=== PATIENT | female | born 1955 | race Caucasian/White ===

== ENCOUNTER → 2020-09-18 14:11 | Outpatient (CLI) | payer OTHER, SELFPAY ==
[2020-09-18 15:17] LABS: EXAGEN MAILED SPECIMEN
[2020-09-18 17:51] LABS: Partial Thromboplast Time 25.2 Seconds (24.1-36.2); Prothrombin Time (Protime)PT. 12.3 SECONDS (11.7-14.9)
[2020-09-18 17:55] LABS: Color, Urine Yellow (Yellow); Glucose, Dipstick Normal (Normal); Ketone-Dipstick Negative (Negative); Leukocyte Esterase-Dipstick 25 /ul (Negative); Nitrite-Dipstick Positive (Negative); Occult Blood-Urine 50 /ul (Negative); Protein-Dipstick Negative (Negative); Urine Bilirubin Dipstick Negative (Negative); Urine Clarity Sl. Cloudy (Clear); Urine Urobilinogen Normal (Normal)
[2020-09-18 17:58] LABS: Absolute Lymphocyte Count 2.88 X10^3/uL (0.83-4.51); Absolute Neutrophil Count 3.4 X10^3/uL (2.0-7.7); Basophil# 0.05 X10^3/uL; Basophil% 0.7 % (0-1); Eosinophil# 0.19 X10^3/uL; Eosinophils% 2.7 % (0-5); Hematocrit 40.7 % (37-47); Hemoglobin 13.1 g/dL (12.0-15.0); Lymphocyte # 2.88 X10^3/ul (0.83-4.51); Lymphocyte % 41.6 % (19-41); Mean Corp Hgb Conc 32.2 g/dL (32-36); Mean Corpuscular Hgb 31.6 pg (27.0-32.0); Mean Corpuscular Volume 98.1 fL (81-99); Mean Platelet Vol. 10.2 fl (6.2-12.0); Monocyte# 0.37 X10^3/uL; Monocyte% 5.3 % (0-10); NRBC Flagged by Analyzer 0 % (0-5); Neutrophil # 3.42 X10^3/uL (2.7-7.7); Neutrophil % 49.4 % (47-70); POSITIVE MORPHOLOGY YES; Platelet Count 258 K/mm3 (150-450); RBC Distribution Width CV 13.2 % (11.6-14.6); RBC Distribution Width SD 46.8 fl (35.1-43.9); Red Blood Count 4.15 M/mm3 (4.2-5.4); White Blood Count 6.9 K/mm3 (4.4-11.0)
[2020-09-18 18:05] LABS: Protein, Urine (Random) 19.4 mg/dL (<11.9); Protein:Creat Ratio 160 mg/g CRE (0-200)
[2020-09-18 18:18] LABS: ALB/GLOB Ratio 1.1 RATIO (0.9-2.4); AST(SGOT) 22 U/L (15-37); Alanine Aminotransfer ALT/SGPT 26 U/L (13-56); Alkaline Phosphatase 89 U/L (45-117); Anion Gap 7 (5-15); BUN 8 mg/dL (7-18); BUN/Creat Ratio 9.2 RATIO (10-20); CRP < 2.90 mg/L (0.0-3.0); Calcium,Total 9.1 mg/dL (8.5-10.1); Chloride 105 mmol/L (98-107); Creatinine, Serum 0.87 mg/dL (0.55-1.02); EST Glomerular Filtration Rate 70 mL/min (>60); Est Glom Filt Rate - Afr Amer 85 mL/min (>60); Globulin 3.6 g/dL (2.2-4.2); Glucose 86 mg/dL (74-106); Potassium 3.9 mmol/L (3.5-5.1); Protein, Total 7.6 g/dL (6.4-8.2); Sodium Level 140 mmol/L (136-145)
[2020-09-18 18:27] LABS: Differential Indicated SCAN CRITERIA MET
[2020-09-18 18:38] LABS: Anisocytosis 1+; Platelet Estimate ADEQUATE (ADEQ); Red Cell Morphology N CHROM NORMAL (NORM C&C)
[2020-09-18 18:39] LABS: Erythrocyte Sedimentation Rate 5 mm/hr (0-30); Macrocytosis 1+; Pathologist Review May foll
[2020-09-19 09:48] LABS: Hepatitis B Surface Antibody Reactive; Hepatitis B Surface Antigen Non-Reactive (Nonreactive); Hepatitis C Antibody Non-Reactive (Nonreactive)
[2020-09-21 07:07] LABS: Dilute Prothrombin Time (dPT) 33.9 sec (0.0-55.0); Dilute Russell Viper Venom 35.5 sec (0.0-47.0); Hexagonal Phase Phospholipid 0 sec (0-11); PTT-LA 31.4 sec (0.0-51.9); Thrombin Time 18.7 sec (0.0-23.0); dPT Confirm Ratio 1.12 Ratio (0.00-1.40)
[2020-09-22 08:33] LABS: Interpretation Comment: (.)
== END ==
PROVIDERS: PCP Family Medicine; Referring Provider Internal Medicine Rheumatology; Visit Provider Internal Medicine Rheumatology
DX: M06.4 Inflammatory polyarthropathy (principal); R76.8 Other specified abnormal immunological findings in serum; M21.41 Flat foot [pes planus] (acquired), right foot; I10 Essential (primary) hypertension; E78.5 Hyperlipidemia, unspecified; F41.9 Anxiety disorder, unspecified
CPT/HCPCS: 36415; 80053; 81002; 82570; 84156; 85025; 85598; 85610; 85652; 85670; 85730; 86140; 86706; 86803; 87340

== ENCOUNTER 2023-07-08 00:10 | Inpatient (IN) | payer MEDICARE, SELFPAY ==
[2023-07-07 23:30] VITALS: BP 157/98; PULSE 68; RESP 18; TEMP 36.3; O2SAT 96
[2023-07-08] VITALS (9 sets, daily range): BP systolic 142–184; BP diastolic 75–105; PULSE 70–92; RESP 18; TEMP 35.7–36.7; O2SAT 94–99; BMI 24.1
--- NOTE | 2023-07-08 00:05 | PCM.HP.STD ---
HPI - General General Date of Admission: 07/08/23 Date of Service: 07/08/23 Chief Complaint: Nausea and vomiting with elevated troponin. HPI Narrative EBONY BAEZ, is a 67 F with a past medical history of essential hypertension, hyperlipidemia, obesity; with BMI of 34 this admission, history of tobacco abuse, depression and osteoarthritis who was transferred from [facility] ER to [facility] for direct admission after she was noted to have elevated troponin. Ms. Baez reports her symptoms began approximately 2 days prior to admission with the abrupt onset of nausea followed by several episodes of bilious emesis. The patient then went to [facility] ER and had a unremarkable CT scan of the abdomen and pelvis with IV volume resuscitation given and patient sent home on July 06, 2023. She then returned home to watch the eclipse but then became ill again with several episodes of nausea and bilious emesis causing her to bring her back to the ER at [facility]. She also admitted to weakness, fatigue and diaphoresis with patient soaking through her bed clothes. On this occasion patient was noted to have another negative CT scan of the abdomen and pelvis but she was noted to have a significant elevated troponin of 1,652 pg/mL (normal high 51.4 pg/mL) consistent with suspected non-ST elevation IA along with urinalysis suggestive of acute cystitis; with microscopic hematuria complicated by laboratory evidence of hypokalemia of 2.9 mmol/L noted at 11:42 AM with associated leukocytosis of 14.3. Further review of her lab studies shows negative assays for COVID-19 and influenza A/B. The ER staff at [place] then contacted the warehouse material handler at this institution to arrange possible transfer after a brief phone conversation with Dr. Barajas. I also had an extensive conversation with the patient's at the bedside who helped to augment the history. She was then admitted to the PCU for ongoing care for stay that is expected to be greater than 48 hours. [facility] Home Medications atorvastatin 40 mg tablet 40 mg PO QHS 07/07/23 [History Last Taken 07/06/23] dicyclomine 20 mg tablet 20 mg PO Q8H PRN PRN abdominal pain 07/07/23 [History Last Taken 07/06/23] metoprolol succinate 25 mg tablet,extended release 24 hr 25 mg PO DAILY 07/07/23 [History Last Taken 07/06/23] ondansetron 4 mg disintegrating tablet 4 mg PO Q8H PRN PRN nausea/vomiting 07/07/23 [History Last Taken 07/07/23 09:00] sertraline 100 mg tablet 200 mg PO DAILY 07/07/23 [History Last Taken 07/06/23] Allergy/AdvReac Type Severity Reaction Status Date / Time Penicillins Allergy Unknown PT UNSURE Verified 07/08/23 00:49 OF REACTION Social History Smoking Status: Current every day smoker tobacco type: cigarettes ROS ROS Narrative Patient was excessively fatigued with limited ability to answer questions so a full review of systems was not possible. Review of Systems ROS Unobtainable: due to mental condition Physical Exam Const alert, no apparent distress and average body habitus General Appearance: cooperative Orientation / Consciousness: lethargic HEENT normocephalic, head/scalp atraumatic, hearing grossly normal bilaterally and moist oral mucous membranes Eyes PERRL and EOMs intact bilaterally Neck no lymphadenopathy and supple Resp normal respiratory effort, no retractions, no use of accessory muscles and clear to auscultation bilaterally Cardio regular rate and regular rhythm GI normal to inspection, nondistended, normoactive bowel sounds, soft to palpation, non-tender and non-distended Extremity normal to inspection and full ROM Skin Skin Narrative: Patient has no evidence of rash or abscess at this time. Neuro CN's II-XII intact bilaterally, moves all extremities and no focal motor deficits Sensorium / Orientation: awake, alert, oriented to person and oriented to place Speech: speech normal Psych affect normal Results Medical Records Data Attestation: I reviewed the patient's medical records Lab / Micro Data Attestation: I reviewed the patient's lab results. Assessment & Plan Assessment/Plan (1) Non-ST elevation myocardial infarction (NSTEMI), initial care episode: (2) Elevated troponin: (3) Acute cystitis with hematuria: (4) Intractable nausea and vomiting: (5) Hypokalemia: PLAN: Plan 1. Suspected non-ST elevation IA with elevated troponin of 1,652 pg/mL present on admission to previous hospital and 1,628 pg/mL this a.m.- Admit to PCU. Continue IV heparin per cardiac protocol plus give metoprolol and add aspirin, Plavix and statin. Give as needed nitroglycerin for breakthrough chest pain. Serialize troponin. Check echocardiogram to evaluate left ventricular ejection fraction. Finally, we will consult quarter inspector on-call to see the patient on rounds in the a.m. for further recommendations regarding left heart cath this admission without appreciated in advance. 2. Acute cystitis; with microscopic hematuria and listed allergy to penicillin (but with patient unsure of reaction) with leukocytosis of 14.3 present on admission complicating #1 - Start empiric IV Rocephin and await culture and sensitivity data. Give Tylenol as needed for pain or fever. 3. Hypokalemia of 2.9 mmol/L present on admission to previous hospital compounding #1 & #2 - Recheck BMP this admission and replete if still deficient. 4. Recent admission followed by readmission to [place] ER for intractable nausea and vomiting with bilious emesis on July 06, 2023 and July 07, [address] scans on both occasions - Noted. Give IV Zofran as needed. 5. Essential hypertension - Resume home regimen as previous plus give IV hydralazine as needed for systolic blood pressure greater than 160 mmHg. 5. Hyperlipidemia - Continue statin and check lipid profile in light of #1. 6. Obesity; with BMI of 34 this admission - Weight loss will be recommended. Check TSH. 7. DVT prophylaxis - Patient already on IV heparin for #1 which will be continued. Total time: Approximately 55 minutes. Charges/Coding Visit Charges Inpatient E&M: 36923 Init Hosp L2
--- NOTE | 2023-07-08 00:14 | EKG12_ITS ---
Test Reason : NSTEMI ADMIT Blood Pressure : / mmHG Vent. Rate : 065 BPM Atrial Rate : 065 BPM P-R Int : 116 ms QRS Dur : 088 ms QT Int : 440 ms P-R-T Axes : 044 -05 030 degrees QTc Int : 457 ms Normal sinus rhythm Nonspecific ST abnormality Abnormal ECG When compared with ECG of 08-JUL-2023 00:19, MANUAL COMPARISON REQUIRED, DATA IS UNCONFIRMED Confirmed by Tad Hong ([id number]), news assignment editor THEODORA PIKE ([id number]) on 07/08/2023 11:36:05 AM Referred By: Quiroga Confirmed By:Tad Hong
--- NOTE | 2023-07-08 00:55 | ECHOD_ITS ---
Reason For Study: S/P HI Procedure This was a 2D Doppler, Color Flow transthoracic echocardiogram. The study was technically difficult. PT was very uncofortable, constant movement. Exam performed portable in patient room. Left Ventricle Normal LV size. The estimated ejection fraction is 55 %. Stage 1 diastolic dysfunction. Segmental dysfunction with preserved ejection fraction (see wall motion). Basal inferoseptal: Hypokinetic. Posterior-Basal: Hypokinetic. Mid-Posterior: Hypokinetic. Infero-Basal: Severely Hypokinetic. There are regional wall motion abnormalities as specified. The rest of the wall segments are normal. Right Ventricle Normal RV size. Normal systolic function. Atria Normal left atrium. Normal right atrium. Mitral Valve Normal mitral valve. Mild (1+) mitral valve insufficiency. Tricuspid Valve Normal tricuspid valve. Mild tricuspid valve insufficiency. Pulmonary artery systolic pressure is 20 mmHg. Aortic Valve Normal aortic valve. Trisinus/trileaflet aortic valve. Pulmonic Valve Normal pulmonic valve. Great Vessels Normal aortic root. The pulmonary artery is normal size. Inferior vena cava collapse with respiration. Pericardium/Pleural No pericardial effusion. MMode/2D Measurements & Calculations LVIDd: 5.6 cm IVSd: 0.97 cm Ao root diam: 2.9 cm LVIDs: 3.9 cm LVPWd: 0.96 cm RVDd: 2.5 cm FS: 31.3 % LAV(MOD-bp): 55.1 ml LVAd ap4: 23.6 cm2 LVAd ap2: 17.6 cm2 LAV(MOD-bp) Indexed: 31.2 ml/m2 LVLd ap4: 6.6 cm LVLd ap2: 6.8 cm LAV(MOD-sp2): 51.2 ml EDV(MOD-sp4): 73.5 ml EDV(MOD-sp2): 41.4 ml LAV(MOD-sp4): 53.9 ml EDV(sp4-el): 71.7 ml EDV(sp2-el): 38.7 ml LVAs ap4: 13.9 cm2 LVAs ap2: 10.2 cm2 LVLs ap4: 5.3 cm LVLs ap2: 5.5 cm ESV(MOD-sp4): 33.4 ml ESV(MOD-sp2): 18.2 ml ESV(sp4-el): 30.6 ml ESV(sp2-el): 15.9 ml EF(MOD-sp4): 54.6 % EF(MOD-sp2): 56.0 % EF(sp4-el): 57.4 % SV(MOD-sp4): 40.2 ml SV(MOD-sp2): 23.2 ml SV(sp4-el): 41.1 ml LA dimension(2D): 3.5 cm LA A4 area: 18.5 cm2 RA A4 area: 11.9 cm2 TAPSE: 2.2 cm Time Measurements MV dec time: 0.31 sec Doppler Measurements & Calculations MV E max christophe: 61.4 cm/sec Lat Peak E' Christophe: 5.4 cm/sec Med Peak E' Christophe: 4.8 cm/sec MV A max christophe: 81.1 cm/sec E/E' lat: 11.3 E/E' med: 12.8 MV E/A: 0.76 MV V2 max: 89.6 cm/sec MV P1/2t max christophe: 59.7 cm/sec Ao V2 max: 130.3 cm/sec MV max P.2 mmHg MV P1/2t: 92.7 msec Ao max P.8 mmHg MV V2 mean: 46.7 cm/sec MV dec slope: 188.6 cm/sec2 Ao V2 mean: 90.2 cm/sec MV mean P.99 mmHg Ao mean P.6 mmHg MV V2 VTI: 26.2 cm MVA(P1/2t): 2.4 cm2 Ao V2 VTI: 26.6 cm AV (velocity ratio): 0.79 LV V1 max: 117.5 cm/sec PA V2 max: 100.3 cm/sec TR max christophe: 202.8 cm/sec LV V1 max P.5 mmHg PA V2 mean: 63.3 cm/sec TR max P.5 mmHg LV V1 mean P.7 mmHg LV V1 mean: 77.0 cm/sec LV V1 VTI: 21.1 cm ECHO/Echo Complete Interpretation Summary Normal LV size. The estimated ejection fraction is 55 %. Stage 1 diastolic dysfunction. Segmental dysfunction with preserved ejection fraction (see wall motion). Ordering Physician: Brian Beach Referring Physician: Zack Reeves Performed By: Cassy Mayo, SATYA, RVT
[2023-07-08 02:14] LABS: Partial Thromboplast Time 41.7 Seconds (24.1-36.2)
[2023-07-08 02:31] LABS: D-Dimer Quantitative (DVT/PE) 1.39 FEU/ug/m (0.27-0.49)
--- NOTE | 2023-07-08 02:35 | VDLE_ITS ---
Reason For Study: Elevated D-Dimer RIGHT LEFT GSV is normal. GSV is normal. CFV is compressible, spontaneous, phasic, CFV is compressible, spontaneous, phasic, competent and demonstrates normal competent, and demonstrates normal augmentation. augmentation. FV is compressible, spontaneous, phasic, FV is compressible, spontaneous, phasic, competent and demonstrates normal competent and demonstrates normal augmentation. augmentation. POP V is compressible, spontaneous, phasic, POP V is compressible, spontaneous, phasic, competent and demonstrates normal competent and demonstrates normal augmentation. augmentation. T/P Trunk is compressible. T/P Trunk is compressible. PTV is compressible. PTV is compressible. RT PerV is compressible. LT PerV is compressible. Procedure This is a venous duplex using B-mode, color flow and spectral Doppler. Exam performed portable in patient room. A preliminary report was called and/or faxed to Aidee ELLER. VL/Venous Duplex US - Deep Extrem Interpretation Summary Deep veins of the lower extremities are bilaterally patent and compressible seg mentally. There is no evidence of deep vein thrombosis on either side. Valvular competence appears in tact within the proximal deep venous systems bilaterally. The great saphenous veins appear bila terally patent and compressible segmentally. Ordering Physician: Brian Beach Referring Physician: Zack Reeves Performed By: Kassie Burr, SATYA, RVT
[2023-07-08 02:41] LABS: Troponin-I HS 1628 pg/mL (3.0-54.0)
[2023-07-08] MEDS: HEPARIN/D5w 25,000 UNITS 25,000 UNITS/250 ML IV.SOLN. 8 UNITS CONT INF (02:41)
[2023-07-08 04:19] LABS: Hematocrit 40.8 % (37-47); Hemoglobin 14.6 g/dL (12.0-15.0); Mean Corp Hgb Conc 35.8 g/dL (32-36); Mean Corpuscular Hgb 32.5 pg (27.0-32.0); Mean Corpuscular Volume 90.9 fL (81-99); Mean Platelet Vol. 9.1 fl (6.2-12.0); Platelet Count 270 K/mm3 (150-450); RBC Distribution Width SD 42.4 fl (35.1-43.9); Red Blood Count 4.49 M/mm3 (4.2-5.4); White Blood Count 14.1 K/mm3 (4.4-11.0)
[2023-07-08 04:48] LABS: Troponin-I HS 1604 pg/mL (3.0-54.0)
[2023-07-08] MEDS: Metoprolol(XL)Succ 25 MG Tablet PO (06:21)
[2023-07-08] MEDS: Potassium Chloride Oral Tablet 20 MEQ 60 MEQ PO (06:21)
[2023-07-08] MEDS: Aspirin E.C. 81 MG Tablet PO (06:21)
[2023-07-08] MEDS: Clopidogrel Bisulfate 75 MG Tablet PO (06:21)
--- NOTE | 2023-07-08 07:15 | PCM.PN.HOSP ---
Reason for Visit Reason for Visit: Diagnoses Hypokalemia (07/08/23) Non-ST elevation (NSTEMI) myocardial infarction (07/08/23) Acute cystitis with hematuria (07/08/23) Nausea with vomiting, unspecified (07/08/23) Other specified abnormal findings of blood chemistry (07/08/23) Objective Data Objective Data Vital Signs: Vital Signs Temp Pulse Resp BP Pulse Ox O2 Del Method 96.9 F L 70 18 142/75 H 94 Room Air 07/08/23 03:00 07/08/23 06:21 07/08/23 03:00 07/08/23 06:21 07/08/23 03:00 07/08/23 03:00 Oxygen Delivery Method Room Air Weight: 149 lb 7.574 oz Body Mass Index (BMI) 24.1 Intake & Output: Intake and Output for Last 24 Hours 07/06/23 07/07/23 07/08/23 23:59 23:59 23:59 Intake Total 0.4 / 0.4 Output Total 0 / 0 Balance 0.4 / 0.4 Lab / Micro Data 07/08/23 04:10 07/08/23 08:19 Labs: Laboratory Results - last 24 hr 07/08/23 01:53: APTT 41.7 H, D-Dimer Quant (PE/DVT) 1.39 H*, Troponin I High Sens 1628 H* 07/08/23 04:10: WBC 14.1 H, RBC 4.49, Hgb 14.6, Hct 40.8, MCV 90.9, MCH 32.5 H, MCHC 35.8, RDW Std Deviation 42.4, RDW Coeff of James 13.0, Plt Count 270, MPV 9.1, Troponin I High Sens 1604 H* Physical Exam Narrative Patient was directly admitted from outside hospital. She has intractable nausea and vomiting about 7-8 times yesterday. Mainly bilious type for 3 days. No abdominal pain. No acute change in bowel movement. High troponin. No chest pain. No fever. Denies prior history of CAD or other chronic cardiac conditions. Physical exam: General: Alert, Oriented x3, Cooperative HEENT: Atraumatic, PERRLA, EOMI, Normocephalic Oral: Oral mucosa dry. No Gingival or Mucosal Lesions/ Ulcerations Neck: Supple, No JVD, Negative Carotid Bruits Chest wall/Lungs: Air entry diminished in bilateral lung bases. No crepitation/rhonchi Cardiovascular: Regular rate, Regular Rhythm, Normal S1, Normal S2, No M/G/R Abdomen: Dry heaving. Bilious vomiting. Bowel Sounds Present, Soft, Non Tender, Non-Distended : No dysuria. No renal angle tenderness. No suprapubic tenderness. Extremities: No edema, Capillary Refill Less than 3 Seconds Skin: No rashes, No breakdown Musculoskeletal: No Tenderness to Palpation of Joints or Extremities Neurological: Cranial nerves II-XII grossly intact, DTR 2+/4. No acute focal neurological deficit. Psych/Mental Status: Normal Affect, Appropriate. Assessment & Plan Assessment/Plan (1) Non-ST elevation myocardial infarction (NSTEMI), initial care episode: (2) Acute cystitis with hematuria: (3) Hypokalemia: PLAN: Plan This 67-year-old female being admitted from outside ED [facility] for elevated troponin. Her symptoms started abruptly with onset of nausea followed by several bilious vomiting. Patient had CT abdomen/pelvis which was unremarkable as per H&P and then sent home after IV fluid resuscitation. She came back with again nausea and vomiting for weakness fatigue and diaphoresis. Repeat CT abdomen was done and was told to accepting hospitalist that it is normal but in fact abnormal, elevated troponin 1652, abnormal UA with microscopic hematuria, hypokalemia K2.9 and associated leukocytosis. Patient with negative COVID-[address] 1. Suspected non-ST elevation [place] with elevated troponin of 1,652 pg/mL present on admission to previous hospital and 1,628 pg/mL and then 1604.- Admit to PCU. Continue IV heparin per cardiac protocol plus give metoprolol and add aspirin, Plavix and statin. Give as needed nitroglycerin for breakthrough chest pain. 2D echo ordered. Cardiology is consulted. CTA chest shows no PE no acute pulmonary parenchymal abnormality. 2. Intractable nausea and bilious vomiting: Although was verbally told by ED physician to admitting hospitalist that [address] abdomen was normal but in fact it was not normal.CT abdomen with contrast on 07/07/2023, compared to CT 07/05 reported persistent thickening of the ascending and proximal portion of transverse colon. Distal transverse and descending colon demonstrated mild wall thickening decreased compared to prior. No bowel obstruction or dilatation. Sigmoid diverticulosis. Rest no acute abnormality found. No aortic aneurysm but atherosclerotic calcification of aorta. I believe that patient might have viral enterocolitis which might be reason for thickening of ascending and proximal colon. Patient does not have abdominal pain or change in bowel movement or diarrhea therefore more specimen for testing. Will treat symptomatically with IV Zofran and metoclopramide. 3. Mild abnormal UA: Patient does not have burning micturition increased frequency or urgency or symptoms consistent with UTI therefore clinically no UTI. IV ceftriaxone discontinued. UA from outside ER shows WBC 6-10, RBC 10-15 cells LE 25 and nitrite negative.UA done today was similar LE 500, 0 RBC, WBC 5200 cells. Urine culture is ordered. 3. Hypokalemia of 2.9 mmol/L present on admission:-Repeat potassium is also low at 3.1. IV KCl replacement ordered. Serum magnesium and phosphorus normal. 4. Recent admission followed by readmission to [place] ER for intractable nausea and vomiting with bilious emesis on July 06, 2023 and July 07, [address] scans on both occasions - Noted. Give IV Zofran as needed. 5. Essential hypertension - Resume home regimen as previous plus give IV hydralazine as needed for systolic blood pressure greater than 160 mmHg. 5. Hyperlipidemia - Continue statin and check lipid profile in light of #1. 6. Obesity; with BMI of 34 this admission - Weight loss will be recommended. Check TSH. 7. DVT prophylaxis - Patient already on IV heparin for non-ST Charges/Coding Visit Charges Inpatient E&M: 45738 Subs Hosp L2
--- NOTE | 2023-07-08 07:45 | CON.PCM.CA_ITS ---
Assessment & Plan Assessment/Plan (1) Non-ST elevation myocardial infarction (NSTEMI), initial care episode: PLAN: The patient has risk factors for cardiovascular disease. Her EKG shows some nonspecific ST segment depression in leads V3 through V5. The nausea and vomiting is potentially an anginal equivalent her troponins high-sensitivity is 1600. We will check a 2D echocardiogram to evaluate her LV function. She needs to have her potassium documented to be fully replaced into the normal range prior to any type of invasive catheterization. I am also concerned that there may be an alternative explanation for this nausea and vomiting we should consider the possibility of a posterior fossa neurologic event. The patient denied any ataxia but does have this unexplained intractable nausea and vomiting. I did discuss the plan in detail with the patient and her who was in the room. (2) Intractable nausea and vomiting: PLAN: Uncertain etiology. It does not appear to be primarily GI in etiology given the negative CT scans. This could be an anginal equivalent. It also could be neurologic manifestation of the posterior fossa event as well. I will defer to the primary service to sort through the noncardiovascular potential etiologies. (3) Hypokalemia: PLAN: Potassium should be replaced to between 3.5 and 5 prior to catheterization. PLAN: Plan 1. Obtain echocardiogram to evaluate the LV function and regional wall motion. 2. Replace potassium to within normal limits. 3. Further evaluation of noncardiac issues per the primary service. HPI Consult Data Date of Consult: 07/08/23 HPI Narrative HPI Narrative: EBONY WREN, is a 67 F who presents with a 3-day history of episodic nausea and bilious vomiting. She was evaluated twice on July 05 and at [facility]. She was treated with Zofran volume replacement and had a negative CT of her abdomen and pelvis on both visits. On the second visit troponins were checked and were found to be 1600. The patient's EKG showed subtle ST segment depressions but no ST segment elevations in the anterior lateral leads. The patient was transferred to [facility]. Since transfer the patient has continued to have some nausea but her vomiting has resolved. She denies any chest discomfort denies any shortness of breath. The patient does have a history of hypertension and hyperlipidemia and she is a long-term smoker about 1/2 pack/day for many years. The patient denies being diabetic. Her labs showed a potassium of 2.9 at primary range. The patient was started on aspirin and clopidogrel and was placed on IV heparin. She is also on low-dose metoprolol and her atorvastatin was continued at 40 mg daily. [facility] Home Medications atorvastatin 40 mg tablet 40 mg PO QHS 07/07/23 [History Last Taken 07/06/23] dicyclomine 20 mg tablet 20 mg PO Q8H PRN PRN abdominal pain 07/07/23 [History Last Taken 07/06/23] metoprolol succinate 25 mg tablet,extended release 24 hr 25 mg PO DAILY 07/07/23 [History Last Taken 07/06/23] ondansetron 4 mg disintegrating tablet 4 mg PO Q8H PRN PRN nausea/vomiting 07/07/23 [History Last Taken 07/07/23 09:00] sertraline 100 mg tablet 200 mg PO DAILY 07/07/23 [History Last Taken 07/06/23] Allergy/AdvReac Type Severity Reaction Status Date / Time Penicillins Allergy Unknown PT UNSURE Verified 07/08/23 00:49 OF REACTION Social History Smoking Status: Current every day smoker tobacco type: cigarettes ROS Constitutional Constitutional: Reports as per HPI Eyes Eyes: Reports systems reviewed and no addt'l complaints, except as documented ENT HEENT: Reports systems reviewed and no addt'l complaints, except as documented Cardiovascular Cardiovascular: Reports as per HPI Respiratory/Chest Respiratory/Chest: Reports as per HPI Gastrointestinal Gastrointestinal: Reports as per HPI Genitourinary Genitourinary: Reports systems reviewed and no addt'l complaints, except as documented Musculoskeletal Musculoskeletal: Reports systems reviewed and no addt'l complaints, except as documented Integumentary Integumentary: Reports systems reviewed and no addt'l complaints, except as documented Neurologic Neurologic: Reports as per HPI Psychiatric Psychiatric: Reports systems reviewed and no addt'l complaints, except as documented Endocrine Endocrinology: Reports systems reviewed and no addt'l complaints, except as documented Hematologic/Lymphatic Hematologic/Lymphatic: Reports systems reviewed and no addt'l complaints, except as documented Allergic/Immunologic Allergic/Immunologic: Reports systems reviewed and no addt'l complaints, except as documented Physical Exam Const alert Constitutional Narrative: Patient was able to answer questions she was somewhat sleepy but really appears just to feel bad from her persistent mild nausea. HEENT normocephalic Eyes EOMs intact bilaterally Neck no JVD Carotids: Negative for bruit Chest inspection of chest normal Resp normal respiratory effort and clear to auscultation bilaterally Cardio regular rate, regular rhythm, S1 normal heart sound, S2 normal heart sound, no murmurs, no rub and no gallops Peripheral Pulses: radial pulses present bilateral 2+ and posterior tibial pulses present bilateral 2+ GI soft to palpation Extremity no pedal edema Skin no rashes or lesions noted Neuro Neuro Narrative: Patient is awake and alert answers questions appropriately and oriented x 3 Psych mental status grossly normal Risk Stratification Risk Stratification Applicable: Yes Age >/= 65: Yes >/= 3 CAD Risk Factors (HTN, HLD, DM, family hx of CAD, or current smoker): Yes Aspirin Use in the Past 7 Days: No Severe Angina (>/= episodes in 24 hours): No EKG ST Changes >/= 0.5mm: Yes Positive Cardiac Marker: Yes BRENDAN Risk Stratification Score: 4 BRENDAN % Risk: 20% Risk Charges/Coding Visit Charges Inpatient E&M: 15648 Init Hosp L3 Objective Data Vital Signs: Vital Signs Temp Pulse Resp BP Pulse Ox O2 Del Method 96.9 F L 70 18 142/75 H 94 Room Air 07/08/23 03:00 07/08/23 06:21 07/08/23 03:00 07/08/23 06:21 07/08/23 03:00 07/08/23 03:00 Oxygen Delivery Method Room Air Weight: 149 lb 7.574 oz Body Mass Index (BMI) 24.1 Intake & Output: Intake and Output for Last 24 Hours 07/06/23 07/07/23 07/08/23 23:59 23:59 23:59 Intake Total 0.4 / 0.4 Output Total 0 / 0 Balance 0.4 / 0.4 Lab / Micro Data Attestation: I reviewed the patient's lab results. 07/08/23 04:10 Labs: Laboratory Results - last 24 hr 07/08/23 01:53: APTT 41.7 H, D-Dimer Quant (PE/DVT) 1.39 H*, Troponin I High Sens 1628 H* 07/08/23 04:10: WBC 14.1 H, RBC 4.49, Hgb 14.6, Hct 40.8, MCV 90.9, MCH 32.5 H, MCHC 35.8, RDW Std Deviation 42.4, RDW Coeff of James 13.0, Plt Count 270, MPV 9.1, Troponin I High Sens 1604 H* Rhythm Strip Rhythm Strip: Sinus Rhythm Rate: 73 Ectopy: - (There was 1 run of SVT noted on the telemetry.) Cardiology Labs/Tests 07/08/23 01:53: APTT 41.7 H, D-Dimer Quant (PE/DVT) 1.39 H* 07/08/23 04:10: WBC 14.1 H, RBC 4.49, Hgb 14.6, Hct 40.8, MCV 90.9, MCH 32.5 H, MCHC 35.8, Plt Count 270, MPV 9.1 Rhythm: EKG: ECHO: Stress Test: Cardiac Cath: PCI: CT Surgery: Holter monitor: EPS: PPM: CXR: Chest CT Scan:
[2023-07-08] MEDS: 0.9% Saline Lock 10 ML Syringe IV ×4 (08:20→17:54)
[2023-07-08] MEDS: Metoclopramide 10 MG/2 ML Vial 5 MG IV ×3 (08:21→20:53)
[2023-07-08 09:08] LABS: AST(SGOT) 34 U/L (15-37); Alanine Aminotransfer ALT/SGPT 22 U/L (13-56); Albumin, Serum 3.8 g/dL (3.2-5.0); Alkaline Phosphatase 87 U/L (45-117); Anion Gap 9 (5-15); BUN 9 mg/dL (7-18); Calcium,Total 9.1 mg/dL (8.5-10.1); Chloride 105 mmol/L (98-107); Cholesterol 244 mg/dL (200); Creatinine, Serum 0.75 mg/dL (0.55-1.02); EST Glomerular Filtration Rate 83 mL/min (>60); Est Glom Filt Rate - Afr Amer 100 mL/min (>60); Estimated Creatinine Clearance 65.63 ml/min; Globulin 3.9 g/dL (2.2-4.2); Glucose 140 mg/dL (74-106); High Density Lipoprotein 71 mg/dL; Potassium 3.1 mmol/L (3.5-5.1); Protein, Total 7.7 g/dL (6.4-8.2); Sodium Level 138 mmol/L (136-145); Thyroid Stim Hormone (TSH) 4.26 uIU/mL (0.358-3.74); Triglycerides 171 mg/dL; Troponin-I HS 1268 pg/mL (3.0-54.0); Very Low Density Lipoprotein 34 mg/dL (5-40)
[2023-07-08] MEDS: Ceftriaxone 1 GM/50 ML BAG IV (09:37)
[2023-07-08 11:13] LABS: Bacteria 0 SEEN /hpf (None Seen); Mucous, Urine 0 SEEN /hpf (<or=2+); Red Blood Cells-Urine 0 SEEN /hpf (0-5)
[2023-07-08 11:15] LABS: Color, Urine Yellow (Yellow); Glucose, Dipstick Normal (Normal); Ketone-Dipstick 50 mg/dl (Negative); Leukocyte Esterase-Dipstick 500 /ul (Negative); Nitrite-Dipstick Negative (Negative); Occult Blood-Urine 250 /ul (Negative); Protein-Dipstick 100 mg/dl (Negative); Urine Bilirubin Dipstick Negative (Negative); Urine Clarity Clear (Clear); Urine Urobilinogen Normal (Normal)
[2023-07-08 11:20] LABS: Squamous Epithelial Cells - UA 0-5 SEEN /hpf (5-10); White Blood Cells 50-100 SEEN /hpf (0-5)
[2023-07-08 11:21] LABS: Magnesium 1.7 mg/dL (1.6-2.6); Phosphorus 2.7 mg/dL (2.5-4.9)
[2023-07-08] MEDS: Ondansetron ODT 4 MG Tablet PO (11:29)
[2023-07-08] MEDS: Potassium Chloride 10mEq/100mL 10 MEQ/100 ML IV.SOLN. 100 MEQ IV BOLUS ×4 (11:29→14:46)
[2023-07-08] MEDS: Magnesium Chloride 64 MG Delay Rel.Tablet 128 MG PO ×2 (13:39→20:53)
--- NOTE | 2023-07-08 14:45 | CASEMGMT ---
RN CM Face to Face with patient for initial transition planning/care coordination assessment. RN CM introduced self and role at [facility]. Patient lying in bed, alert and oriented, at bedside. Patient willing to participate in assessment and is able to answer all questions appropriately. Care providers, pharmacy, and demographics verified. PCP: Leandro Specialists: none Preferred Pharmacy: [facility] Insurance: [facility], [facility] Prescription Benefit: yes Living Will/HPOA: yes, Ken Baez LNOK: Living Arrangements: Patient lives with in a 2 story home. Patient is independent and able ambulate stairs Transportation: self, DME/HHC: Patient denies DME in the home. No previous HHC or SNF. Patient wishes to discharge home, denies need for home health at this time. Patient states he has no further needs or concerns at this time. CM to follow for discharge planning needs that may arise. Disposition Plan: Patient to discharge home with family support and follow-up plans in place. Debora DAVIES, RN, CM
[2023-07-08] MEDS: Lisinopril 10 MG Tablet PO (15:15)
[2023-07-08] MEDS: Ondansetron 4 MG/2 ML Vial IV (17:54)
[2023-07-08] MEDS: Atorvastatin Calcium 40 MG Tablet PO (20:53)
[2023-07-08] MEDS: Labetalol (Prefilled) 20 MG/4 ML 10 MG IV (20:53)
[2023-07-08] MEDS: Scopolamine 1mg/72hr Patch 1 PATCH TD (23:27)
[2023-07-08] MEDS: proCHLORPERazine 10 MG/2 ML Vial IV (23:31)
[2023-07-09] VITALS (11 sets, daily range): BP systolic 141–179; BP diastolic 68–105; PULSE 73–94; RESP 16–18; TEMP 36.3–37.3; O2SAT 95–99
--- NOTE | 2023-07-09 05:55 | EKG12_ITS ---
Test Reason : PRE OP Blood Pressure : / mmHG Vent. Rate : 093 BPM Atrial Rate : 093 BPM P-R Int : 136 ms QRS Dur : 084 ms QT Int : 380 ms P-R-T Axes : 078 -10 013 degrees QTc Int : 472 ms Normal sinus rhythm Nonspecific ST abnormality Abnormal ECG When compared with ECG of 08-JUL-2023 00:22, No significant change was found Confirmed by Tad Hong ([id number]), editor greeting card IONA KEENE ([id number]) on 07/09/2023 8:28:21 AM Referred By: Confirmed By:Tad Hong
[2023-07-09] MEDS: Metoprolol(XL)Succ 25 MG Tablet PO (06:10)
[2023-07-09] MEDS: Lisinopril 10 MG Tablet PO (06:10)
[2023-07-09] MEDS: Aspirin E.C. 81 MG Tablet PO (06:11)
[2023-07-09] MEDS: Metoclopramide 10 MG/2 ML Vial 5 MG IV ×2 (06:11→17:41)
[2023-07-09] MEDS: Clopidogrel Bisulfate 75 MG Tablet PO (06:11)
--- NOTE | 2023-07-09 07:01 | MRI_ITS ---
STUDY: MRI BRAIN WITH AND WITHOUT CONTRAST REASON FOR EXAM: Female, 67 years old. intractable n/v,suspect posterior fossa - TECHNIQUE: Standardized multiplanar fat and water weighted pulse sequences were obtained. IV 13ml clariscan was administered for the contrast portion of the examination. COMPARISON: None. FINDINGS: There is mild cerebral atrophy with widening of the extra-axial spaces and ventricular dilatation. There are a limited number of small white matter hyperintensities, distributed throughout the deep white matter tracts of the cerebral hemispheres, consistent with mild chronic white matter ischemic changes. There is no evidence for recent intracranial ischemia or other cause of cytotoxic edema on diffusion weighted imaging (DWI). Normal T2* images of the brain without demonstrated susceptibility artifact. There is no demonstrated hemosiderin stain. There are no demyelinating plagues of the supratentorial brain, brainstem or cerebellum. There are no findings suspicious for multiple sclerosis (MS). Normal bilateral basal ganglia. Normal thalami. There is no extra-axial fluid accumulation. Normal flow voids within the major intracranial circulation suggesting patency by spin echo criteria. Normal venous enhancement. There is no enhancing intra-axial or extra-axial abnormality. No enhancing lesions are present. There is no demonstrated abnormal meningeal thickening or enhancement. Normal sella turcica, pituitary gland, infundibular stalk, optic chiasm and hypothalamus. Normal tectal plate and pineal gland. Normal midbrain, kelsey and medulla. Normal cerebellum. Normal basal cisterns. Normal bilateral temporal bones. Normal bilateral internal auditory canals. No demonstrated orbital abnormality, within the constraints of a routine brain study. Normal visualized paranasal sinuses. Normal calvarium and skull base. Normal visualized soft tissue structures. Normal visualized upper cervical spine. There is severe opacification of the left mastoid air cells consistent with mastoiditis. There also appears to be some mild opacification in the petrous mastoid air cells on the right as well. MRI/Brain W/WO Contrast IMPRESSION: 1. Involutional and mild chronic ischemic changes of the brain, as described above. 2. No acute infarct or intracranial hemorrhage 3. Severe left mastoiditis, this can be better assessed with CT of the temporal bones Electronically Signed: Patrick Davey MD at 10:39 EDT ,
--- NOTE | 2023-07-09 07:17 | PCM.PN.CARD ---
Subjective Subjective The patient continues to complain of nausea which is debilitating. She has been resting in the bed. A review of the CT scans did show some changes in the transverse colon that might be consistent with a viral infection. However the patient has had no diarrhea and has not had any abdominal pains. She continues to be nauseated despite Zofran and now scopolamine patch. The scopolamine patch seems to improve the nausea more than anything. It is not appear to change with change of position. And she denies any focal neurologic signs other than some short-term memory issues. The patient's cardiovascular workup is consistent with presumed coronary artery disease she does have atherosclerotic disease in her descending aorta on her CAT scan she has a wall motion abnormality on her echo and her enzymes are positive. She is tentatively scheduled for cath today. I discussed this in detail with the patient and her I am extremely concerned about taking her to the [facility] placing a stent and then delegating her to a minimum 6 months of dual antiplatelet therapy. I feel prior to proceeding to cath we need to definitively rule out any intracranial issues that could be causing this intractable nausea. Objective Data Vital Signs: Vital Signs Temp Pulse Resp BP Pulse Ox O2 Del Method 98.5 F 94 18 179/105 H 98 Room Air 07/09/23 03:00 07/09/23 06:37 07/09/23 03:00 07/09/23 06:37 07/09/23 03:00 07/09/23 03:00 Oxygen Delivery Method Room Air Weight: 149 lb 7.574 oz Body Mass Index (BMI) 24.1 Intake & Output: Intake and Output for Last 24 Hours 07/07/23 07/08/23 07/09/23 23:59 23:59 23:59 Intake Total 618.55 / 858.55 240 / 240 Output Total 0 / 0 Balance 618.55 / 858.55 240 / 240 Lab / Micro Data 07/08/23 04:10 07/08/23 08:19 Labs: Laboratory Results - last 24 hr 07/08/23 08:19: APTT 38.0 H, Sodium 138, Potassium 3.1 L, Chloride 105, Carbon Dioxide 24.0, Anion Gap 9, BUN 9, Creatinine 0.75, Estim Creat Clear Calc 65.63, Est GFR (MDRD) Af Amer 100, Est GFR (MDRD) Non-Af 83, BUN/Creatinine Ratio 12.0, Glucose 140 H, Calcium 9.1, Phosphorus 2.7, Magnesium 1.7, Total Bilirubin 1.00, AST 34, ALT 22, Alkaline Phosphatase 87, Troponin I High Sens 1268 H*, Total Protein 7.7, Albumin 3.8, Globulin 3.9, Albumin/Globulin Ratio 1.0, Triglycerides 171, Cholesterol 244 H, LDL Cholesterol 139 H, VLDL Cholesterol 34, HDL Cholesterol 71, TSH 4.26 H 07/08/23 11:08: Urine Color Yellow, Urine Clarity Clear, Urine pH 6.0, Ur Specific [place] 1.020, Urine Protein 100 H, Urine Glucose (UA) Normal, Urine Ketones 50 H, Urine Occult Blood 250 H, Urine Nitrite Negative, Urine Bilirubin Negative, Urine Urobilinogen Normal, Ur Leukocyte Esterase 500 H, Urine RBC 0 SEEN, Urine WBC 50-100 SEEN, Ur Squamous Epith Cells 0-5 SEEN, Urine Bacteria 0 SEEN, Urine Mucus 0 SEEN Rhythm Strip Rhythm Strip: Sinus Rhythm Rate: 70 Cardiology Labs/Tests 07/08/23 08:19: APTT 38.0 H, Sodium 138, Potassium 3.1 L, Chloride 105, Carbon Dioxide 24.0, Anion Gap 9, BUN 9, Creatinine 0.75, Est GFR (MDRD) Af Amer 100, Est GFR (MDRD) Non-Af 83, BUN/Creatinine Ratio 12.0, Glucose 140 H, Calcium 9.1, Phosphorus 2.7, Magnesium 1.7, Total Bilirubin 1.00, Triglycerides 171, Cholesterol 244 H, LDL Cholesterol 139 H, VLDL Cholesterol 34, HDL Cholesterol 71 07/08/23 11:08: Urine Color Yellow, Urine Clarity Clear, Urine pH 6.0, Ur Specific [place] 1.020, Urine Protein 100 H, Urine Glucose (UA) Normal, Urine Ketones 50 H, Urine Occult Blood 250 H, Urine Nitrite Negative, Urine Bilirubin Negative, Urine Urobilinogen Normal, Ur Leukocyte Esterase 500 H, Urine RBC 0 SEEN, Urine WBC 50-100 SEEN Rhythm: EKG: ECHO: Stress Test: Cardiac Cath: PCI: CT Surgery: Holter monitor: EPS: PPM: CXR: Chest CT Scan: Radiography Diagnostic Testing: Radiology Impression Echocardiogram 07/08/23 00:55 Interpretation Summary Normal LV size. The estimated ejection fraction is 55 %. Stage 1 diastolic dysfunction. Segmental dysfunction with preserved ejection fraction (see wall motion). Ordering Physician: Brian Beach Referring Physician: Zack Reeves Performed By: Cassy Mayo RDCS, RVT Venous Doppler Study 07/08/23 02:35 Interpretation Summary Deep veins of the lower extremities are bilaterally patent and compressible segmentally. There is no evidence of deep vein thrombosis on either side. Valvular competence appears intact within the proximal deep venous systems bilaterally. The great saphenous veins appear bilaterally patent and compressible segmentally. Ordering Physician: Brian Beach Referring Physician: Zack Reeves Performed By: Kassie Burr RDCS, RVT Physical Exam Const alert HEENT normocephalic Eyes EOMs intact bilaterally Neck full ROM Chest inspection of chest normal Resp normal respiratory effort Cardio regular rate and regular rhythm Extremity no pedal edema Skin no rashes or lesions noted Neuro Neuro Narrative: The nausea persist there are no obvious focal deficits. Psych mental status grossly normal Assessment & Plan Assessment/Plan (1) Intractable nausea and vomiting: PLAN: The patient's nausea is persistent despite multiple drug therapy although it is somewhat better this morning by her report with the addition of scopolamine patch. I still remain very concerned that this could be some type of intracranial issue given the duration of this persistent nausea and a lack of other viable explanation for this nausea. There is some question of the second CT scan showing some changes in the transverse colon consistent with a possible viral infection. There is no evidence of pancreatitis. The patient also does have wall motion abnormalities on her echo and positive enzymes as well as atherosclerosis documented in the descending aorta on the CAT scan. It is highly likely she has coronary artery disease but it is unlikely that this persistent nausea is related to it. I have ordered an MRI of the brain. I did call the MRI department and they felt that the dental implants would not be an issue. She has no other contra or pseudo contraindication for MRI. (2) Non-ST elevation myocardial infarction (NSTEMI), initial care episode: PLAN: Given the potential for needing to stent the patient's coronary arteries and this persistent nausea I am concerned that we need to definitively rule out an intracranial issue. We need to make certain that there is no contraindication for long-term dual antiplatelet therapy prior to taking the patient to the [facility]. I reviewed this in detail with the patient and her and they voiced understanding. The patient's hemodynamic status and her cardiovascular status seems to have been stable throughout her hospitalization. PLAN: Plan 1. Obtain MRI prior to cardiac catheterization. 2. Will continue to monitor cardiovascular status until we can better define the etiology of this nausea. Charges/Coding Visit Charges Inpatient E&M: 38742 Subs Hosp L3
[2023-07-09 09:25] LABS: Absolute Lymphocyte Count 2.42 X10^3/uL (0.83-4.51); Absolute Neutrophil Count 9.2 X10^3/uL (2.0-7.7); Basophil# 0.06 X10^3/uL; Basophil% 0.5 % (0-1); Eosinophil# 0.07 X10^3/uL; Eosinophils% 0.5 % (0-5); Hematocrit 44.4 % (37-47); Hemoglobin 15.4 g/dL (12.0-15.0); Lymphocyte # 2.42 X10^3/ul (0.83-4.51); Lymphocyte % 18.9 % (19-41); Mean Corp Hgb Conc 34.7 g/dL (32-36); Mean Corpuscular Hgb 31.6 pg (27.0-32.0); Mean Platelet Vol. 9.3 fl (6.2-12.0); Monocyte# 1.08 X10^3/uL; Monocyte% 8.4 % (0-10); NRBC Flagged by Analyzer 0 % (0-5); Neutrophil # 9.16 X10^3/uL (2.7-7.7); Neutrophil % 71.5 % (47-70); Platelet Count 296 K/mm3 (150-450); RBC Distribution Width CV 13.1 % (11.6-14.6); Red Blood Count 4.88 M/mm3 (4.2-5.4); White Blood Count 12.8 K/mm3 (4.4-11.0)
[2023-07-09 09:58] LABS: Anion Gap 5 (5-15); BUN 16 mg/dL (7-18); BUN/Creat Ratio 21.6 RATIO (10-20); Calcium,Total 9.9 mg/dL (8.5-10.1); Chloride 106 mmol/L (98-107); Creatinine, Serum 0.74 mg/dL (0.55-1.02); EST Glomerular Filtration Rate 83 mL/min (>60); Est Glom Filt Rate - Afr Amer 101 mL/min (>60); Estimated Creatinine Clearance 65.63 ml/min; Glucose 133 mg/dL (74-106); Potassium 3.7 mmol/L (3.5-5.1); Sodium Level 135 mmol/L (136-145)
[2023-07-09] MEDS: 0.9% Saline Lock 10 ML Syringe IV (10:23)
[2023-07-09] MEDS: Ceftriaxone 1 GM/50 ML BAG IV (10:23)
[2023-07-09] MEDS: Magnesium Chloride 64 MG Delay Rel.Tablet 128 MG PO ×2 (10:23→21:59)
[2023-07-09] MEDS: Ondansetron 4 MG/2 ML Vial IV (10:25)
--- NOTE | 2023-07-09 13:58 | CL.D_ITS ---
Patient Name: EBONY WREN Study Date: 07/09/2023 Performing: Faraz Barnhart MD Ht: 66 inches 167.64 cm : 1955 Wt: 149.7 lbs 67.8 kg Age: 67 Gender: female BSA: 1.77 PROCEDURE(S) PERFORMED DC01-(38063)LHC/COR/LV CLINICAL PROFILE AND INDICATIONS Indications: Suspected CAD Heart Failure: None Stress/Imaging Stress/Image Study Performed: No CAD Presentations: Symptom unlikely to be ischemic. CONCLUSIONS Moderate disease noted in the mid left anterior descending artery and moderately severe disease noted in the small first diagonal vessel. RECOMMENDATIONS Medical therapy DESCRIPTION OF PROCEDURE The patient arrived to the procedure lab. The risks and benefits of the procedure as well as a full description of our services here and current unavailability of surgical backup were fully explained to the patient and/or their significant other prior to the catheterization. The Timeout was completed, verifying the correct patient and procedure. The patient's procedural site was prepped and draped in the usual fashion. Local anesthetic was given subcutaneously to right radial region with Lidocaine 2%. Using a modified Seldinger technique, arterial access was obtained via the right radial artery, a 6Fr sheath was inserted. Left Coronary Artery selective angiography was performed in multiple views using a 5 Fr. 4.0 [place] catheter. Right Coronary Artery selective angiography was then performed in multiple views using a 5 Fr. 4.0 [place] catheter. Left Ventriculography was performed in COLBY projection using a 5 Fr. Pigtail catheter.The arterial sheath was pulled and a TR Band was applied for hemostasis 14 ml of air CORONARY ANGIOGRAPHY DOMINANCE: Right Dominant LEFT HEART ASSESSMENT Left Ventricular Ejection Fraction: by LV Gram 55 % Posterior Basal Hypokinesis - Moderate. Inferior Mid Hypokinesis - Moderate Normal Left Ventricular systolic function LEFT MAIN: Angiographically normal LEFT ANTERIOR DESCENDING ARTERY: Mild calcification MID LAD: Moderate luminal irregularities up to 50% DIAGONAL 1: Proximal - 70-80 % Stenosis CIRCUMFLEX ARTERY: Mild luminal irregularities RIGHT CORONARY ARTERY: No significant disease noted COMPLICATIONS No Complications PROCEDURE MEDICATIONS Fentanyl 50 mcg IV Versed 1 mg IV Versed 1 mg IV Oxygen: 2 L/min via nasal cannula Heparin given IA 07/09/2023 11:33:39 Verapamil 2.5mg, Ntg 100mcgs, 3000 units of Heparin given IA 07/09/2023 11:33:39 SUMMARY OF HEMODYNAMIC DATA Time AIR REST ECG 11:18:01 AO 137/85 (109) SA 11:37:54 LV 140/-1, 2 11:42:56 LV 0/0, 0 11:43:16 LV 0/130, 0 11:43:35 LV 148/76, 79 11:44:07 Signed By Faraz Barnhart MD On 07/09/2023 13:57:52 Faraz Barnhart MD
--- NOTE | 2023-07-09 14:06 | PN.HOSP_ITS ---
Reason for Visit Reason for Visit: Diagnoses Hypokalemia (07/08/23) Non-ST elevation (NSTEMI) myocardial infarction (07/08/23) Acute cystitis with hematuria (07/08/23) Nausea with vomiting, unspecified (07/08/23) Other specified abnormal findings of blood chemistry (07/08/23) Objective Data Objective Data Vital Signs: Vital Signs Temp Pulse Resp BP Pulse Ox O2 Del Method 98.0 F 90 16 141/76 H 98 Room Air 07/09/23 13:57 07/09/23 13:57 07/09/23 13:57 07/09/23 13:57 07/09/23 13:57 07/09/23 13:57 Oxygen Delivery Method Room Air Weight: 149 lb 7.574 oz Body Mass Index (BMI) 24.1 Intake & Output: Intake and Output for Last 24 Hours 07/07/23 07/08/23 07/09/23 23:59 23:59 23:59 Intake Total 618.55 / 858.55 290 / 290 Output Total 0 / 0 Balance 618.55 / 858.55 290 / 290 Lab / Micro Data 07/09/23 08:56 07/09/23 08:56 Labs: Laboratory Results - last 24 hr 07/09/23 08:56: WBC 12.8 H, RBC 4.88, Hgb 15.4 H, Hct 44.4, MCV 91.0, MCH 31.6, MCHC 34.7, RDW Std Deviation 44.0 H, RDW Coeff of James 13.1, Plt Count 296, MPV 9.3, Immature Gran % (Auto) 0.200, Neut % (Auto) 71.5 H, Lymph % (Auto) 18.9 L, [place] % (Auto) 8.4, Eos % (Auto) 0.5, Baso % (Auto) 0.5, Absolute Neuts (auto) 9.2 H, Absolute Lymphs (auto) 2.42, Nucleated RBC % 0, Sodium 135 L, Potassium 3.7, Chloride 106, Carbon Dioxide 24.0, Anion Gap 5, BUN 16, Creatinine 0.74, Estim Creat Clear Calc 65.63, Est GFR (MDRD) Af Amer 101, Est GFR (MDRD) Non-Af 83, BUN/Creatinine Ratio 21.6 H, Glucose 133 H, Calcium 9.9 Radiography Diagnostic Testing: Radiology Impression Venous Doppler Study 07/08/23 02:35 Interpretation Summary Deep veins of the lower extremities are bilaterally patent and compressible segmentally. There is no evidence of deep vein thrombosis on either side. Valvular competence appears intact within the proximal deep venous systems bilaterally. The great saphenous veins appear bilaterally patent and compressible segmentally. Ordering Physician: Brian Beach Referring Physician: Zack Reeves Performed By: Kassie Burr, RDCS, RVT Brain MRI 07/09/23 07:01 IMPRESSION: 1. Involutional and mild chronic ischemic changes of the brain, as described above. 2. No acute infarct or intracranial hemorrhage 3. Severe left mastoiditis, this can be better assessed with CT of the temporal bones Electronically Signed: Patrick Davey MD at 10:39 EDT Reading Location ID and State: [facility] / [place] , Service support , Rhythm Strip Rhythm Strip: Sinus Rhythm Rate: 70 Ectopy: - (There was 1 run of SVT noted on the telemetry.) Physical Exam Narrative Last 24 hours patient marked her 1-2 vomiting but mainly dry heaving and nausea. Storm Chaser ordered MRI brain to rule out any stroke. MRI brain came negative for acute stroke but shows left severe mastoid air cells opacification and mild right mastoid but patient does not have ear pain/impaired hearing or tinnitus, dizziness or vertigo. 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 No chest pain. Physical exam: General: Alert, Oriented x3, Cooperative HEENT: Atraumatic, PERRLA, EOMI, Normocephalic. No mastoid tenderness. Oral: Oral mucosa dry. No Gingival or Mucosal Lesions/ Ulcerations Neck: Supple, No JVD, Negative Carotid Bruits Chest wall/Lungs: Air entry diminished in bilateral lung bases. No crepitation/rhonchi Cardiovascular: Regular rate, Regular Rhythm, Normal S1, Normal S2, No M/G/R Abdomen: Dry heaving. Bilious vomiting. Bowel Sounds Present, Soft, Non Tender, Non-Distended : No dysuria. No renal angle tenderness. No suprapubic tenderness. Extremities: No edema, Capillary Refill Less than 3 Seconds Skin: No rashes, No breakdown Musculoskeletal: No Tenderness to Palpation of Joints or Extremities Neurological: Cranial nerves II-XII grossly intact, DTR 2+/4. No acute focal neurological deficit. Psych/Mental Status: Normal Affect, Appropriate. Assessment & Plan Assessment/Plan (1) Non-ST elevation myocardial infarction (NSTEMI), initial care episode: (2) Acute cystitis with hematuria: (3) Hypokalemia: PLAN: Plan This 67-year-old female being admitted from outside ED [facility] for elevated troponin. Her symptoms started abruptly with onset of nausea followed by several bilious vomiting. Patient had CT abdomen/pelvis which was unremarkable as per H&P and then sent home after IV fluid resuscitation. She came back with again nausea and vomiting for weakness fatigue and diaphoresis. Repeat CT abdomen was done and was told to accepting hospitalist that it is normal but in fact abnormal, elevated troponin 1652, abnormal UA with microscopic hematuria, hypokalemia K2.9 and associated leukocytosis. Patient with negative COVID-[address] 1. Suspected non-ST elevation AL with elevated troponin of 1,652 pg/mL present on admission to previous hospital and 1,628 pg/mL and then 1604.- Admit to PCU. Continue IV heparin per cardiac protocol plus give metoprolol and add aspirin, Plavix and statin. Give as needed nitroglycerin for breakthrough chest pain. 2D echo ordered. Cardiology is consulted. CTA chest shows no PE no acute pulmonary parenchymal abnormality. 07/08: Patient had cardiac cath, right dominant EF 55%. Moderate inferior and posterior basal hypokinesis. Moderate disease in mid LAD and moderately severe small proximal D1 70 to 80%. Medical management recommended. 2. Intractable nausea and bilious vomiting: Although was verbally told by ED physician to admitting hospitalist that [address] abdomen was normal but in fact it was not normal.CT abdomen with contrast on 07/07/2023, compared to CT 07/05 reported persistent thickening of the ascending and proximal portion of transve rse colon. Distal transverse and descending colon demonstrated mild wall thickening decreased compared to prior. No bowel obstruction or dilatation. Sigmoid diverticulosis. Rest no acute abnormality found. No aortic aneurysm but atherosclerotic calcification of aorta. I believe that patient might have viral enterocolitis which might be reason for thickening of ascending and proximal colon. Patient does not have abdominal pain or change in bowel movement or diarrhea therefore more specimen for testing. Will treat symptomatically with IV Zofran and metoclopramide. 07/08: Nausea and vomiting has gotten better. MRI brain does not show acute stroke but severe left mastoid air cell opacification and mild right mastoid air cell opacification. Patient does not have ear pain, impaired hearing, dizziness, or tinnitus therefore no related ENT symptoms therefore most likely chronic mastoiditis. Patient on IV ceftriaxone empirically. Total 7 days of antibiotic recommended. Advised follow-up with ENT Dr. Javier Brown in the office. 3. Mild abnormal UA: Patient does not have burning micturition increased frequency or urgency or symptoms consistent with UTI therefore clinically no UTI. IV ceftriaxone discontinued. UA from outside ER shows WBC 6-10, RBC 10-15 cells LE 25 and nitrite negative.UA done today was similar LE 500, 0 RBC, WBC 5200 cells. Urine culture is ordered. 07/08: Urine culture pending. 3. Hypokalemia of 2.9 mmol/L present on admission:-Repeat potassium is also low at 3.1. IV KCl replacement ordered. Serum magnesium and phosphorus normal. 4. Recent admission followed by readmission to [facility] for intractable nausea and vomiting with bilious emesis on July 06, 2023 and July 07, [address] scans on both occasions - Noted. Give IV Zofran as needed. 5. Essential hypertension - Resume home regimen as previous plus give IV hydralazine as needed for systolic blood pressure greater than 160 mmHg. 5. Hyperlipidemia - Continue statin and check lipid profile in light of #1. 6. Obesity; with BMI of 34 this admission - Weight loss will be recommended. Check TSH. 7. DVT prophylaxis - Patient already on IV heparin for non-ST Charges/Coding Visit Charges Inpatient E&M: 53746 Subs Hosp L2
[2023-07-09] MEDS: proMETHazine 25 MG/ML Syringe 12.5 MG IM (18:43)
[2023-07-09] MEDS: Atorvastatin Calcium 40 MG Tablet PO (22:00)
[2023-07-10 03:42] VITALS: BP 155/102; PULSE 93; RESP 16; TEMP 36.8; O2SAT 99
[2023-07-10] MEDS: proMETHazine 25 MG/ML Syringe 12.5 MG IM (04:19)
[2023-07-10] MEDS: 0.9% Saline Lock 10 ML Syringe IV (04:20)
[2023-07-10 07:56] LABS: Absolute Neutrophil Count 7.4 X10^3/uL (2.0-7.7); Basophil# 0.07 X10^3/uL; Basophil% 0.6 % (0-1); Eosinophil# 0.18 X10^3/uL; Eosinophils% 1.5 % (0-5); Hematocrit 44.7 % (37-47); Hemoglobin 15.5 g/dL (12.0-15.0); Lymphocyte % 26.2 % (19-41); Mean Corp Hgb Conc 34.7 g/dL (32-36); Mean Corpuscular Hgb 31.6 pg (27.0-32.0); Mean Platelet Vol. 9.3 fl (6.2-12.0); Monocyte# 1.09 X10^3/uL; Monocyte% 9.2 % (0-10); NRBC Flagged by Analyzer 0 % (0-5); Neutrophil # 7.38 X10^3/uL (2.7-7.7); Neutrophil % 62.3 % (47-70); Platelet Count 298 K/mm3 (150-450); RBC Distribution Width CV 12.9 % (11.6-14.6); RBC Distribution Width SD 42.9 fl (35.1-43.9); Red Blood Count 4.91 M/mm3 (4.2-5.4); White Blood Count 11.8 K/mm3 (4.4-11.0)
--- NOTE | 2023-07-10 07:56 | PCM.PN.CARD ---
Subjective Subjective Patient chart reviewed. Patient has CAD that will be treated medically. Objective Data Vital Signs: Vital Signs Temp Pulse Resp BP Pulse Ox O2 Del Method 98.3 F 93 16 155/102 H 99 Room Air 07/10/23 03:42 07/10/23 03:42 07/10/23 03:42 07/10/23 03:42 07/10/23 03:42 07/10/23 03:42 Oxygen Delivery Method Room Air Weight: 149 lb 7.574 oz Body Mass Index (BMI) 24.1 Intake & Output: Intake and Output for Last 24 Hours 07/08/23 07/09/23 07/10/23 23:59 23:59 23:59 Intake Total 618.55 / 858.55 810 / 810 440 / 440 Output Total 0 / 0 Balance 618.55 / 858.55 810 / 810 440 / 440 Lab / Micro Data Attestation: I reviewed the patient's lab results. 07/09/23 08:56 07/09/23 08:56 Labs: Laboratory Results - last 24 hr 07/09/23 08:56: WBC 12.8 H, RBC 4.88, Hgb 15.4 H, Hct 44.4, MCV 91.0, MCH 31.6, MCHC 34.7, RDW Std Deviation 44.0 H, RDW Coeff of James 13.1, Plt Count 296, MPV 9.3, Immature Gran % (Auto) 0.200, Neut % (Auto) 71.5 H, Lymph % (Auto) 18.9 L, [place] % (Auto) 8.4, Eos % (Auto) 0.5, Baso % (Auto) 0.5, Absolute Neuts (auto) 9.2 H, Absolute Lymphs (auto) 2.42, Nucleated RBC % 0, Sodium 135 L, Potassium 3.7, Chloride 106, Carbon Dioxide 24.0, Anion Gap 5, BUN 16, Creatinine 0.74, Estim Creat Clear Calc 65.63, Est GFR (MDRD) Af Amer 101, Est GFR (MDRD) Non-Af 83, BUN/Creatinine Ratio 21.6 H, Glucose 133 H, Calcium 9.9 Rhythm Strip Rhythm Strip: Sinus Rhythm Rate: 87 Ectopy: - (There was 1 run of SVT noted on the telemetry.) Cardiology Labs/Tests 07/09/23 08:56: WBC 12.8 H, RBC 4.88, Hgb 15.4 H, Hct 44.4, MCV 91.0, MCH 31.6, MCHC 34.7, Plt Count 296, MPV 9.3, Immature Gran % (Auto) 0.200, Neut % (Auto) 71.5 H, Lymph % (Auto) 18.9 L, [place] % (Auto) 8.4, Eos % (Auto) 0.5, Baso % (Auto) 0.5, Absolute Neuts (auto) 9.2 H, Nucleated RBC % 0, Sodium 135 L, Potassium 3.7, Chloride 106, Carbon Dioxide 24.0, Anion Gap 5, BUN 16, Creatinine 0.74, Est GFR (MDRD) Af Amer 101, Est GFR (MDRD) Non-Af 83, BUN/Creatinine Ratio 21.6 H, Glucose 133 H, Calcium 9.9 Rhythm: EKG: ECHO: Stress Test: Cardiac Cath: PCI: CT Surgery: Holter monitor: EPS: PPM: CXR: Chest CT Scan: Radiography Diagnostic Testing: Radiology Impression Brain MRI 07/09/23 07:01 IMPRESSION: 1. Involutional and mild chronic ischemic changes of the brain, as described above. 2. No acute infarct or intracranial hemorrhage 3. Severe left mastoiditis, this can be better assessed with CT of the temporal bones Electronically Signed: Patrick Davey MD at 10:39 EDT Reading Location ID and State: [address] [place] [address] , Service support , Assessment & Plan Assessment/Plan (1) Non-ST elevation myocardial infarction (NSTEMI), initial care episode: PLAN: Patient has severe disease in a small diagonal branch. There is moderate disease in the proximal LAD no more than 50% stenosis. The right coronary is large dominant and free of any significant disease in the circumflex has no significant disease. There is a wall motion abnormality in the mid inferior wall. The patient is currently on beta-teresa, JANES inhibitor, atorvastatin, and an aspirin a day. The patient denies any anginal symptoms. The diagnosis of her non-STEMI was made off the echocardiogram wall motion abnormality and her elevated troponins. The patient's wall motion abnormality does not coincide with the most significant coronary disease. PLAN: Plan 1. Continue current secondary risk factor modification medical therapy. 2. Follow-up in the [facility] office in 3 to 4 weeks. 3. Further evaluation and treatment of the nausea and her blood pressure will be deferred to the primary service. Charges/Coding Visit Charges Inpatient E&M: 57777 Subs Hosp L1
--- NOTE | 2023-07-10 08:07 | PCM.DC ---
Discharge Instructions Diet Discharge Diet: Low fat / Low cholesterol and 2000 mg Sodium Diet Activity Discharge Activity: Return to Normal Activity Weight Bearing Status: Weight bearing as tolerated Dressing / Incision Call your doctor if you observe: Fever of 101 or Higher, Coldness, Increased Pain, Numbness or Tingling, Change in Color, Inability to urinate, Inability to have a bowel movement, Using more than 1 pad per hour, Shortness of breath, Dizziness, Fainting spells, Swelling in the ankles, Chest pain, Prolonged hiccupping, Increased palpitations (irregular heartbeat) and Calf discomfort Follow Up Care When: IN 2 WEEKS Test Results: Test results from this visit will be discussed in further detail at your follow-up appointment, if applicable. Discharge Plan Admission Admit Date/Time: 07/08/23 00:10 Primary Reason for Your Visit: NSTEMI Attending Provider: Choco Travis Primary Care Provider: Zack Reeves Consulting Providers: Ashley Mccormick; Kye Waldron; Jing Mauricio; Dipesh Willard; Kei Antoine; Faraz Barnhart; Arthur Fletcher; Rivas Underwood; Leonardo Marquez; Tad Hong; Jorge Lyons; Edwige Manzano; James Weber; Miky Hayes; Onel Olivarez; Mickey Medrano; Zack Burr [employer]; Ashley Qureshi NP; Irma Fitzpatrick PA; Brian Beach Discharge Orders/Prescriptions Prescriptions: New aspirin 81 mg Tablet,Delayed Release (Dr/Ec) 81 mg PO BREAKFAST 30 Days Qty: 30 4RF lisinopril 10 mg Tablet 10 mg PO DAILY 30 Days Qty: 30 2RF atorvastatin 80 mg tablet 80 mg PO QHS 30 Days Qty: 30 3RF ondansetron HCl 4 mg tablet 4 mg PO Q6H PRN (Reason: nausea and vomiting) 30 Days Qty: 30 0RF metoclopramide HCl [Reglan] 5 mg tablet 5 mg PO Q6H PRN (Reason: nausea and vomiting) Qty: 14 0RF cefdinir 300 mg capsule 300 mg PO BID 3 Days Qty: 6 0RF Continued dicyclomine 20 mg tablet 20 mg PO Q8H PRN PRN (Reason: abdominal pain) ondansetron 4 mg tablet,disintegrating 4 mg PO Q8H PRN PRN (Reason: nausea/vomiting) Changed metoprolol succinate 25 mg tablet extended release 24 hr 50 mg PO DAILY 30 Days Qty: 60 0RF Rx Instructions: Hold for heart less than 50 or systolic blood pressure less than 100 mmHg. Held sertraline 100 mg tablet 200 mg PO DAILY Hold Instructions: Do not take sertraline While taking metoclopramide/Reglan Discontinued atorvastatin 40 mg tablet 40 mg PO QHS Referrals / Follow Up: Zack Reeves MD [Primary Care Provider] - Javier Brown MD [Med Staff - Active Staff] - Within 2 Weeks (left matoiditis, chronic?) Tad Hong MD [Med Staff - Active Staff] - Within 1 Month Domenic Macias DO [Med Staff - Active Staff] - Within 1 Month (For proximal colon thickening, Need colonoscopy.) Disposition Disposition (needs filled in before D/C Order can be placed): Home, Self Care
--- NOTE | 2023-07-10 08:21 | PCM.DC.SUM ---
Providers Date of Admission: 07/08/23 Primary Care Physician: Dr. Zack Reeves MD Consultations 07/08/23 00:55 Consult: Cardiology Routine Consulting Provider: Armando Navas Reason for Consult: Non-STEMI EMERGENT Consult: No MD Notified: Yes Date Notified: 07/08/23 Time Notified: 06:42 Method of Notification: Text Method of Consult:: In-Person Reason For Visit: NON-ST ELEVATION ME Diagnosis Discharge Diagnosis (1) Non-ST elevation myocardial infarction (NSTEMI), initial care episode: Status: Acute Code(s): I21.4 - Non-ST elevation (NSTEMI) myocardial infarction Plan This 67-year-old female being admitted from outside ED [facility] for elevated troponin. Her symptoms started abruptly with onset of nausea followed by several bilious vomiting. Patient had CT abdomen/pelvis which was unremarkable as per H&P and then sent home after IV fluid resuscitation. She came back with again nausea and vomiting for weakness fatigue and diaphoresis. Repeat CT abdomen was done and was told to accepting hospitalist that it is normal but in fact abnormal, elevated troponin 1652, abnormal UA with microscopic hematuria, hypokalemia K2.9 and associated leukocytosis. Patient with negative COVID-[address] 1. Suspected non-ST elevation ME with elevated troponin of 1,652 pg/mL present on admission to previous hospital and 1,628 pg/mL and then 1604.- Admit to PCU. Continue IV heparin per cardiac protocol plus give metoprolol and add aspirin, Plavix and statin. Give as needed nitroglycerin for breakthrough chest pain. 2D echo ordered. Cardiology is consulted. CTA chest shows no PE no acute pulmonary parenchymal abnormality. 07/08: Patient had cardiac cath, right dominant EF 55%. Moderate inferior and posterior basal hypokinesis. Moderate disease in mid LAD and moderately severe small proximal D1 70 to 80%. Medical management recommended. 07/09: Discharged on aspirin, beta-kirstin JOSÉ MIGUEL inhibitor and atorvastatin. Follow-up in cardiology office with Dr. Hong in about 1 month. 2. Intractable nausea and bilious vomiting: Although was verbally told by ED physician to admitting hospitalist that [address] abdomen was normal but in fact it was not normal.CT abdomen with contrast on 07/07/2023, compared to CT 07/05 reported persistent thickening of the ascending and proximal portion of transverse colon. Distal transverse and descending colon demonstrated mild wall thickening decreased compared to prior. No bowel obstruction or dilatation. Sigmoid diverticulosis. Rest no acute abnormality found. No aortic aneurysm but atherosclerotic calcification of aorta. I believe that patient might have viral enterocolitis which might be reason for thickening of ascending and proximal colon. Patient does not have abdominal pain or change in bowel movement or diarrhea therefore more specimen for testing. Will treat symptomatically with IV Zofran and metoclopramide. 07/08: Nausea and vomiting has gotten better. MRI brain does not show acute stroke but severe left mastoid air cell opacification and mild right mastoid air cell opacification. Patient does not have ear pain, impaired hearing, dizziness, or tinnitus therefore no related ENT symptoms therefore most likely chronic mastoiditis. Patient on IV ceftriaxone empirically. Total 7 days of antibiotic recommended. Advised follow-up with ENT Dr. Javier Brown in the office. 07/09: Nausea and vomiting has gotten better. Although olanzapine was ordered as needed but she did not require it. Patient discharged on empiric Zofran and metoclopramide. Advised to follow-up with the carrier driver Dr. Macias in about [address] Javier Brown. Discharge plan discussed in detail with the patient and her near the bedside. 3. Mild abnormal UA: Patient does not have burning micturition increased frequency or urgency or symptoms consistent with UTI therefore clinically no UTI. IV ceftriaxone discontinued. UA from outside ER shows WBC 6-10, RBC 10-15 cells LE 25 and nitrite negative.UA done today was similar LE 500, 0 RBC, WBC 5200 cells. Urine culture is ordered. 07/09: Urine culture shows no growth. UTI ruled out. 3. Hypokalemia of 2.9 mmol/L present on admission:-Repeat potassium is also low at 3.1. IV KCl replacement ordered. Serum magnesium and phosphorus normal. 07/09 on repeat potassium 3.8. Hypokalemia resolved. 4. Recent admission followed by readmission to [facility] for intractable nausea and vomiting with bilious emesis on July 06, 2023 and July 07, [address] scans on both occasions - Noted. Give IV Zofran as needed. 5. Essential hypertension - Resume home regimen as previous plus give IV hydralazine as needed for systolic blood pressure greater than 160 mmHg. 5. Hyperlipidemia - Continue statin and check lipid profile in light of #1. 6. Obesity; with BMI of 34 this admission - Weight loss will be recommended. Check TSH. 7. DVT prophylaxis - Patient already on IV heparin for non-ST Discharge medication reconciliation done. Discharge follow-up instructions completed. Discharge process discussed with the patient and all questions were answered to patient's satisfaction. Follow with PCP in 1 to 2 weeks Total time spent, exact 35 minutes on discharge meds reconciliation, examination, coordination of care with nurses and ancillary staff, review of imaging and blood test and discussion with the patient on follow-up instructions. Clinical Impression(s) from Imaging Studies Echocardiogram 07/08/23 00:55 Interpretation Summary Normal LV size. The estimated ejection fraction is 55 %. Stage 1 diastolic dysfunction. Segmental dysfunction with preserved ejection fraction (see wall motion). Venous Doppler Study 07/08/23 02:35 Interpretation Summary Deep veins of the lower extremities are bilaterally patent and compressible segmentally. There is no evidence of deep vein thrombosis on either side. Valvular competence appears intact within the proximal deep venous systems bilaterally. The great saphenous veins appear bilaterally patent and compressible segmentally. Brain MRI 07/09/23 07:01 IMPRESSION: 1. Involutional and mild chronic ischemic changes of the brain, as described above. 2. No acute infarct or intracranial hemorrhage 3. Severe left mastoiditis, this can be better assessed with CT of the temporal bones Electronically Signed: Patrick Davey MD at 10:39 EDT Reading Location ID and State: [address] [place] [address] , Service support , Medications at Discharge Home Medications dicyclomine 20 mg tablet 20 mg PO Q8H PRN PRN abdominal pain 07/07/23 ondansetron 4 mg disintegrating tablet 4 mg PO Q8H PRN PRN nausea/vomiting 07/07/23 sertraline 100 mg tablet 200 mg PO DAILY 07/07/23 aspirin 81 mg tablet,delayed release 81 mg PO BREAKFAST 30 days #30 tabs 07/10/23 atorvastatin 80 mg tablet 80 mg PO QHS 1 month #30 tabs 07/10/23 cefdinir 300 mg capsule 300 mg PO BID 3 days #6 caps 07/10/23 lisinopril 10 mg tablet 10 mg PO DAILY 30 days #30 tabs 07/10/23 metoclopramide HCl 5 mg tablet (Reglan) 5 mg PO Q6H PRN nausea and vomiting #14 tabs 07/10/23 metoprolol succinate 25 mg tablet,extended release 24 hr 50 mg (2 x 25 mg) PO DAILY 30 days #60 tabs 07/10/23 ondansetron HCl 4 mg tablet 4 mg PO Q6H PRN nausea and vomiting 1 month #30 tabs 07/10/23 Physical Exam Narrative Nausea and vomiting resolved. In the evening she was put on Phenergan which might of controlled. She will also ordered as needed olanzapine but she did not require it. Cardiac cath findings discussed with the patient and her . MRI brain came negative for acute stroke but shows left severe mastoid air cells opacification and mild right mastoid but patient does not have ear pain/impaired hearing or tinnitus, dizziness or vertigo. The patient taken to slab installer. No chest pain. Physical exam: General: Alert, Oriented x3, Cooperative HEENT: Atraumatic, PERRLA, EOMI, Normocephalic. No mastoid tenderness. Oral: Oral mucosa dry. No Gingival or Mucosal Lesions/ Ulcerations Neck: Supple, No JVD, Negative Carotid Bruits Chest wall/Lungs: Air entry diminished in bilateral lung bases. No crepitation/rhonchi Cardiovascular: Regular rate, Regular Rhythm, Normal S1, Normal S2, No M/G/R Abdomen: Dry heaving. Bilious vomiting. Bowel Sounds Present, Soft, Non Tender, Non-Distended : No dysuria. No renal angle tenderness. No suprapubic tenderness. Extremities: No edema, Capillary Refill Less than 3 Seconds Skin: No rashes, No breakdown Musculoskeletal: No Tenderness to Palpation of Joints or Extremities Neurological: Cranial nerves II-XII grossly intact, DTR 2+/4. No acute focal neurological deficit. Psych/Mental Status: Normal Affect, Appropriate. Weight / BMI Weight Weight: 149 lb 7.574 oz Body Mass Index (BMI) 24.1 ABG / Lab / Microbiology Data 07/10/23 07:16 07/10/23 07:16 Laboratory: Laboratory Results - last 24 hr 07/09/23 08:56: WBC 12.8 H, RBC 4.88, Hgb 15.4 H, Hct 44.4, MCV 91.0, MCH 31.6, MCHC 34.7, RDW Std Deviation 44.0 H, RDW Coeff of James 13.1, Plt Count 296, MPV 9.3, Immature Gran % (Auto) 0.200, Neut % (Auto) 71.5 H, Lymph % (Auto) 18.9 L, Screven % (Auto) 8.4, Eos % (Auto) 0.5, Baso % (Auto) 0.5, Absolute Neuts (auto) 9.2 H, Absolute Lymphs (auto) 2.42, Nucleated RBC % 0, Sodium 135 L, Potassium 3.7, Chloride 106, Carbon Dioxide 24.0, Anion Gap 5, BUN 16, Creatinine 0.74, Estim Creat Clear Calc 65.63, Est GFR (MDRD) Af Amer 101, Est GFR (MDRD) Non-Af 83, BUN/Creatinine Ratio 21.6 H, Glucose 133 H, Calcium 9.9 07/10/23 07:16: WBC 11.8 H, RBC 4.91, Hgb 15.5 H, Hct 44.7, MCV 91.0, MCH 31.6, MCHC 34.7, RDW Std Deviation 42.9, RDW Coeff of James 12.9, Plt Count 298, MPV 9.3, Immature Gran % (Auto) 0.200, Neut % (Auto) 62.3, Lymph % (Auto) 26.2, Screven % (Auto) 9.2, Eos % (Auto) 1.5, Baso % (Auto) 0.6, Absolute Neuts (auto) 7.4, Absolute Lymphs (auto) 3.10, Nucleated RBC % 0 Radiography Diagnostic Testing: Radiology Impression Brain MRI 07/09/23 07:01 IMPRESSION: 1. Involutional and mild chronic ischemic changes of the brain, as described above. 2. No acute infarct or intracranial hemorrhage 3. Severe left mastoiditis, this can be better assessed with CT of the temporal bones Electronically Signed: Patrick Davey MD at 10:39 EDT Reading Location ID and State: [facility] / [place] , Service support , D/C Instructions Discharge Diet: Low fat / Low cholesterol and 2000 mg Sodium Diet Weight Bearing Status: Weight bearing as tolerated Call your doctor if you observe: Fever of 101 or Higher, Coldness, Increased Pain, Numbness or Tingling, Change in Color, Inability to urinate, Inability to have a bowel movement, Using more than 1 pad per hour, Shortness of breath, Dizziness, Fainting spells, Swelling in the ankles, Chest pain, Prolonged hiccupping, Increased palpitations (irregular heartbeat) and Calf discomfort When: IN 2 WEEKS Meaningful Use Info Meaningful Use Diagnoses (Choose all that apply): AMI AMI/Post PCI/Angioplasty Aspirin given w/in 24hrs of arrival?: Yes ASA at discharge?: Yes Statins at discharge?: Yes José Miguel/ARB at discharge?: Yes Beta Kirstin at discharge?: Yes Done w/ Acute ME measure.: Yes Discharge Plan Admission Admit Date/Time: 07/08/23 00:10 Primary Reason for Your Visit: NSTEMI Attending Provider: Choco Travis Primary Care Provider: Zack Reeves Consulting Providers: Ashley Mccormick; Kye Waldron; Jing Mauricio; Dipesh Willard; Kei Antoine; Faraz Barnhart; Arthur Fletcher; Rivas Underwood; Leonardo Marquez; Tad Hong; Jorge Lyons; Edwige Manzano; James Weber; Miky Hayes; Onel Olivarez; Mickey Medrano; Zack Burr YEAST CULTURE OPERATOR; Ashley Qureshi NP; Irma Fitzpatrick; Brian Beach Discharge Orders/Prescriptions Prescriptions: New aspirin 81 mg Tablet,Delayed Release (Dr/Ec) 81 mg PO BREAKFAST 30 Days Qty: 30 4RF lisinopril 10 mg Tablet 10 mg PO DAILY 30 Days Qty: 30 2RF atorvastatin 80 mg tablet 80 mg PO QHS 30 Days Qty: 30 3RF ondansetron HCl 4 mg tablet 4 mg PO Q6H PRN (Reason: nausea and vomiting) 30 Days Qty: 30 0RF metoclopramide HCl [Reglan] 5 mg tablet 5 mg PO Q6H PRN (Reason: nausea and vomiting) Qty: 14 0RF cefdinir 300 mg capsule 300 mg PO BID 3 Days Qty: 6 0RF Continued dicyclomine 20 mg tablet 20 mg PO Q8H PRN PRN (Reason: abdominal pain) ondansetron 4 mg tablet,disintegrating 4 mg PO Q8H PRN PRN (Reason: nausea/vomiting) Changed metoprolol succinate 25 mg tablet extended release 24 hr 50 mg PO DAILY 30 Days Qty: 60 0RF Rx Instructions: Hold for heart less than 50 or systolic blood pressure less than 100 mmHg. Held sertraline 100 mg tablet 200 mg PO DAILY Hold Instructions: Do not take sertraline While taking metoclopramide/Reglan Discontinued atorvastatin 40 mg tablet 40 mg PO QHS Referrals / Follow Up: Zack Reeves MD [Primary Care Provider] - Javier Brown MD [Med Staff - Active Staff] - Within 2 Weeks (left matoiditis, chronic?) Tad Hong MD [Med Staff - Active Staff] - Within 1 Month Domenic Macias DO [Med Staff - Active Staff] - Within 1 Month (For proximal colon thickening, Need colonoscopy.) Disposition Disposition (needs filled in before D/C Order can be placed): Home, Self Care Charges/Coding Visit Charges Inpatient E&M: 58555 Disch Hosp >30min
[2023-07-10 08:25] LABS: Anion Gap 4 (5-15); BUN 16 mg/dL (7-18); BUN/Creat Ratio 18.8 RATIO (10-20); Calcium,Total 9.9 mg/dL (8.5-10.1); Chloride 106 mmol/L (98-107); Creatinine, Serum 0.85 mg/dL (0.55-1.02); EST Glomerular Filtration Rate 71 mL/min (>60); Est Glom Filt Rate - Afr Amer 86 mL/min (>60); Estimated Creatinine Clearance 61.77 ml/min; Glucose 116 mg/dL (74-106); Potassium 3.8 mmol/L (3.5-5.1); Sodium Level 138 mmol/L (136-145)
--- NOTE | 2023-07-10 09:29 | CASEMGMT ---
Patient has order for discharge. RN CM in to discuss needs at discharge. Patient and deny needs or help at discharge. Patient and had no further questions or concerns.
[2023-07-10 09:47] VITALS: PULSE 100
[2023-07-10] MEDS: Clopidogrel Bisulfate 75 MG Tablet PO (09:47)
[2023-07-10] MEDS: Metoprolol(XL)Succ 25 MG Tablet PO (09:47)
[2023-07-10] MEDS: Aspirin E.C. 81 MG Tablet PO (09:47)
[2023-07-10] MEDS: Lisinopril 10 MG Tablet PO (09:48)
== END 2023-07-10 10:18 | disposition home or self-care (01) | DRG 282 ==
PROVIDERS: Admitting Provider Internal Medicine; PCP Family Medicine; Visit Provider Internal Medicine
DX: I21.4 Non-ST elevation (NSTEMI) myocardial infarction (principal); A08.4 Viral intestinal infection, unspecified; I10 Essential (primary) hypertension; I70.0 Atherosclerosis of aorta; E78.5 Hyperlipidemia, unspecified; E87.6 Hypokalemia; I25.10 Atherosclerotic heart disease of native coronary artery without angina pectoris; K57.30 Diverticulosis of large intestine without perforation or abscess without bleeding; F17.210 Nicotine dependence, cigarettes, uncomplicated; E66.9 Obesity, unspecified; H70.12 Chronic mastoiditis, left ear; Z11.52 Encounter for screening for COVID-19; Z68.34 Body mass index [BMI] 34.0-34.9, adult; Z79.899 Other long term (current) drug therapy; Z88.0 Allergy status to penicillin
CPT/HCPCS: 36415; 70553; 80048; 80053; 80061; 81001; 83735; 84100; 84443; 84484; 85025; 85027; 85379; 85730; 87086; 93005; 93306; 93458; 93970; 99152; 99153; A9575; J7040; Q9967; A4216; C1769; C1894; J2405

== ENCOUNTER 2023-07-12 02:36 | Emergency (ER) | payer MEDICARE, SELFPAY ==
[2023-07-12 02:38] VITALS: BP 107/59; PULSE 85; RESP 13; TEMP 36.3; O2SAT 98
[2023-07-12 02:49] VITALS: BP 107/54; PULSE 87; RESP 16; TEMP 36.3; O2SAT 99
[2023-07-12 02:55] VITALS: BP 103/56; BP 103/58; BP 91/56
[2023-07-12 03:27] LABS: Absolute Lymphocyte Count 4.19 X10^3/uL (0.83-4.51); Absolute Neutrophil Count 5.9 X10^3/uL (2.0-7.7); Basophil% 0.9 % (0-1); Eosinophil# 0.29 X10^3/uL; Eosinophils% 2.5 % (0-5); Hematocrit 38.6 % (37-47); Hemoglobin 13.1 g/dL (12.0-15.0); Lymphocyte # 4.19 X10^3/ul (0.83-4.51); Lymphocyte % 36.6 % (19-41); Mean Corp Hgb Conc 33.9 g/dL (32-36); Mean Corpuscular Hgb 31.5 pg (27.0-32.0); Mean Corpuscular Volume 92.8 fL (81-99); Mean Platelet Vol. 9.7 fl (6.2-12.0); Monocyte# 0.91 X10^3/uL; Monocyte% 7.9 % (0-10); NRBC Flagged by Analyzer 0 % (0-5); Neutrophil # 5.92 X10^3/uL (2.7-7.7); Neutrophil % 51.8 % (47-70); Platelet Count 303 K/mm3 (150-450); RBC Distribution Width SD 43.9 fl (35.1-43.9); Red Blood Count 4.16 M/mm3 (4.2-5.4); White Blood Count 11.5 K/mm3 (4.4-11.0)
[2023-07-12 03:33] LABS: Bacteria 0 SEEN /hpf (None Seen); Mucous, Urine 0 SEEN /hpf (<or=2+); Red Blood Cells-Urine 0 SEEN /hpf (0-5)
[2023-07-12] MEDS: 0.9% Normal Saline (500mL Bag) 500 ML 999 ML IV (03:34)
[2023-07-12 03:46] LABS: Color, Urine Yellow (Yellow); Glucose, Dipstick Normal (Normal); Ketone-Dipstick 5 mg/dl (Negative); Leukocyte Esterase-Dipstick 500 /ul (Negative); Nitrite-Dipstick Negative (Negative); Occult Blood-Urine 150 /ul (Negative); Protein-Dipstick 30 mg/dl (Negative); Urine Bilirubin Dipstick Negative (Negative); Urine Clarity Clear (Clear); Urine Urobilinogen Normal (Normal)
[2023-07-12 03:49] VITALS: BP 101/50; PULSE 81; RESP 16; TEMP 36.6; O2SAT 95
[2023-07-12 04:00] LABS: Anion Gap 7 (5-15); BUN 32 mg/dL (7-18); BUN/Creat Ratio 21.2 RATIO (10-20); Calcium,Total 9.4 mg/dL (8.5-10.1); Chloride 102 mmol/L (98-107); Creatinine, Serum 1.51 mg/dL (0.55-1.02); EST Glomerular Filtration Rate 37 mL/min (>60); Est Glom Filt Rate - Afr Amer 44 mL/min (>60); Glucose 118 mg/dL (74-106); Magnesium 1.8 mg/dL (1.6-2.6); Potassium 3.2 mmol/L (3.5-5.1); Sodium Level 135 mmol/L (136-145)
[2023-07-12 04:04] LABS: Hyaline Cast 10-25 SEEN /lpf (0-5); Squamous Epithelial Cells - UA 0-5 SEEN /hpf (5-10); Transitional Epithelial - Ur 0-5 SEEN /hpf (0-5); White Blood Cells 5-10 SEEN /hpf (0-5)
--- NOTE | 2023-07-12 04:12 | EX.ED.DYSGE1 ---
HPI History of Present Illness Chief Complaint: Syncope Informant: patient and spouse/S.O. Narrative Narrative: Patient is a 67-year-old female with past medical history of coronary artery disease and hypertension and hyperlipidemia. She was admitted to the hospital just a few days ago secondary to non-STEMI with elevated troponins underwent a cardiac cath which recommended medical management. She also had an MRI of her brain at that time which showed no acute bleed mass or stroke symptoms. Patient was started on multiple new medications. She states that she has had frequent falls and a bout of syncope and also reports that she seemed slightly confused. Secondary to these new symptoms despite her recent hospitalization she was brought in for repeat evaluation [facility] Medical History Hypertension Home Medications dicyclomine 20 mg tablet 20 mg PO Q8H PRN PRN abdominal pain 07/07/23 [History Last Taken 07/06/23] ondansetron 4 mg disintegrating tablet 4 mg PO Q8H PRN PRN nausea/vomiting 07/07/23 [History Last Taken 07/07/23 09:00] sertraline 100 mg tablet 200 mg PO DAILY 07/07/23 [History Last Taken 07/06/23] aspirin 81 mg tablet,delayed release 81 mg PO BREAKFAST 30 days #30 tabs 07/10/23 [Rx Last Taken Unknown] atorvastatin 80 mg tablet 80 mg PO QHS 1 month #30 tabs 07/10/23 [Rx Last Taken Unknown] cefdinir 300 mg capsule 300 mg PO BID 3 days #6 caps 07/10/23 [Rx Last Taken Unknown] lisinopril 10 mg tablet 10 mg PO DAILY 30 days #30 tabs 07/10/23 [Rx Last Taken Unknown] metoclopramide HCl 5 mg tablet (Reglan) 5 mg PO Q6H PRN nausea and vomiting #14 tabs 07/10/23 [Rx Last Taken Unknown] metoprolol succinate 25 mg tablet,extended release 24 hr 50 mg (2 x 25 mg) PO DAILY 30 days #60 tabs 07/10/23 [Rx Last Taken Unknown] ondansetron HCl 4 mg tablet 4 mg PO Q6H PRN nausea and vomiting 1 month #30 tabs 07/10/23 [Rx Last Taken Unknown] potassium chloride 10 mEq capsule,extended release 10 meq PO DAILY 7 days #7 caps 07/12/23 [Rx Last Taken Unknown] Allergy/AdvReac Type Severity Reaction Status Date / Time Penicillins Allergy Unknown PT UNSURE Verified 07/08/23 00:49 OF REACTION Surgical History (Updated 07/12/23 @ 02:54 by Teresa Birmingham) H/O left knee surgery H/O right heart catheterization History of tonsillectomy Social History Smoking Status: Current every day smoker tobacco type: cigarettes ROS ROS ED Constitutional Constitutional ED: Denies chills or fever(s) Eyes Eyes: Denies blurry vision or change in vision ENT ENT ED: Denies sore throat Cardiovascular Cardiovascular: Reports other Details: Positive syncope ; Denies chest pain or palpitations Respiratory/Chest Respiratory/Chest: Denies cough or dyspnea Gastrointestinal Gastrointestinal: Denies abdominal pain, diarrhea, nausea or vomiting Genitourinary Genitourinary ED: Denies dysuria Musculoskeletal Musculoskeletal: Denies myalgias Integumentary Denies rash Neurologic Neurologic: Reports other Details: Positive confusion ; Denies headache(s) Hematologic/Lymphatic Hematologic/Lymphatic: Denies easy bleeding or easy bruising EXAM Physical Exam Const Vital Signs: 07/12/23 02:38 07/12/23 02:49 07/12/23 02:55 Temperature 97.3 F L 97.3 F L Temperature Source Temporal Temporal Pulse Rate 85 87 Respiratory Rate 13 16 Respiratory Effort Respiratory Pattern Blood Pressure 107/59 L 107/54 L Blood Pressure [Lying] 103/56 L Blood Pressure [Sitting (for 1 minute prior to obtaining)] 91/56 L Blood Pressure [Standing (for 1 minute prior to obtaining)] 103/58 L Blood Pressure Mean 75 71 Blood Pressure Mean [Lying] 71 Blood Pressure Mean [Sitting (for 1 minute prior to obtaining)] 67 Blood Pressure Mean [Standing (for 1 minute prior to obtaining)] 73 Pulse Ox 98 99 Oxygen Delivery Method Room Air Room Air 07/12/23 03:49 07/12/23 02:49 07/12/23 04:37 Temperature 97.9 F Temperature Source Oral Pulse Rate 81 72 Respiratory Rate 16 19 H Respiratory Effort Normal Non-Labored Respiratory Pattern Normal Blood Pressure 101/50 L 112/78 Blood Pressure [Lying] Blood Pressure [Sitting (for 1 minute prior to obtaining)] Blood Pressure [Standing (for 1 minute prior to obtaining)] Blood Pressure Mean 67 89 Blood Pressure Mean [Lying] Blood Pressure Mean [Sitting (for 1 minute prior to obtaining)] Blood Pressure Mean [Standing (for 1 minute prior to obtaining)] Pulse Ox 95 98 Oxygen Delivery Method Room Air Room Air 07/12/23 05:27 Temperature 97.9 F Temperature Source Pulse Rate 81 Respiratory Rate 19 H Respiratory Effort Respiratory Pattern Blood Pressure 112/76 Blood Pressure [Lying] Blood Pressure [Sitting (for 1 minute prior to obtaining)] Blood Pressure [Standing (for 1 minute prior to obtaining)] Blood Pressure Mean 88 Blood Pressure Mean [Lying] Blood Pressure Mean [Sitting (for 1 minute prior to obtaining)] Blood Pressure Mean [Standing (for 1 minute prior to obtaining)] Pulse Ox 97 Oxygen Delivery Method Positive well nourished and well developed General Appearance ED: well developed; Negative for pallor HEENT Reports dry mucous membranes HEENT Narrative: Mucous membranes are dry and tacky without secondary changes to suggest infection No tongue or lip swelling no oral lesions no airway edema or compromise No tongue or cheek biting noted Mouth ED: Yes dry mucous membranes Mouth: dry mucous membranes Eyes PERRL and EOMs intact bilaterally General Eye ED: Negative for scleral icterus Neck supple Neck Narrative: No nuchal rigidity or meningeal signs Resp normal respiratory effort and clear to auscultation bilaterally Cardio regular rate and regular rhythm Rate: other Other Details: No carotid bruit noted Radial and carotid pulses are equal and symmetric GI normal to inspection, nondistended, normoactive bowel sounds, non-tender, non-distended and no masses GI Narrative: No voluntary guarding or rigidity or pulsatile mass Auscultation: normoactive bowel sounds Palpation: soft Extremity normal to inspection Extremity Narrative: No asymmetric edema no pitting edema negative Homans' sign bilaterally Neuro oriented x3, CN's II-XII intact bilaterally and no sensory deficits noted Neuro Narrative: Cranial nerves II through XII are grossly intact there are no focal neurologic deficits No pronator drift no dysmetria no truncal ataxia NIH stroke scale score of 0 Sensorium / Orientation: alert Motor Exam: strength 5/5 throughout Psych mental status grossly normal Skin no rashes or lesions noted Skin Narrative: Skin turgor is increased General Skin Exam: Negative for jaundice or pallor MDM MDM MDM Narrative Medical decision making narrative: Patient arrived to the ER with borderline hypotension but overall stable vitals and a normal neurologic exam. She presented with multiple complaints such as confusion with potential syncope versus TIA versus seizure. With recent hospitalization and heart cath there is concern that she could have acute kidney injury as well or progressed to urosepsis as she has been on antibiotics and there may be failure of outpatient therapy. Basic blood work was obtained which shows her creatinine has elevated from 0.86-1.5 which correlates with her physical exam findings of dehydration. Potassium was slightly low at 3.2 so therefore this was replaced orally. Patient's thyroid value was also slightly elevated at approximately 9 but chart review reveals it has been elevated in the past. The patient was also noted to be wearing a scopolamine patch and chart review reveals that over 10% of people can have dizziness and confusion while on it and therefore it was removed in the ER. Patient was given 1.5 L of fluid secondary to her elevated creatinine and exam showing dehydration. After receiving fluid and having the scopolamine patch removed patient did report feeling better. On arrival her NIH is 0 and on repeat evaluation the stroke scale score remains 0. At this time as she had a overall normal MRI of her brain at the last evaluation and her symptoms have improved in the ER with fluid and removal of her patch and her urine sample showing no signs of infection to suggest failure of outpatient therapy I do not feel there is need for readmission or further workup and patient is otherwise safe for discharge History & Record Review Discussion w/independent historian: Patient and Significant other Lab Data Attestation: I reviewed the patient's lab results. Labs: Laboratory Results - last 24 hr 07/12/23 07/12/23 03:00 03:10 WBC 11.5 H RBC 4.16 L Hgb 13.1 Hct 38.6 MCV 92.8 MCH 31.5 MCHC 33.9 RDW Std Deviation 43.9 RDW Coeff of James 13.0 Plt Count 303 MPV 9.7 Immature Gran % (Auto) 0.300 Neut % (Auto) 51.8 Lymph % (Auto) 36.6 [place] % (Auto) 7.9 Eos % (Auto) 2.5 Baso % (Auto) 0.9 Absolute Neuts (auto) 5.9 Absolute Lymphs (auto) 4.19 Nucleated RBC % 0 Sodium 135 L Potassium 3.2 L Chloride 102 Carbon Dioxide 26.0 Anion Gap 7 BUN 32 H Creatinine 1.51 H Est GFR (MDRD) Af Amer 44 L Est GFR (MDRD) Non-Af 37 L BUN/Creatinine Ratio 21.2 H Glucose 118 H Calcium 9.4 Magnesium 1.8 Total Bilirubin 0.60 Direct Bilirubin 0.16 AST 24 ALT 20 Alkaline Phosphatase 94 Total Protein 6.7 Albumin 3.4 Globulin 3.3 TSH 8.94 H Urine Color Yellow Urine Clarity Clear Urine pH 5.0 Ur Specific [place] 1.020 Urine Protein 30 H Urine Glucose (UA) Normal Urine Ketones 5 H Urine Occult Blood 150 H Urine Nitrite Negative Urine Bilirubin Negative Urine Urobilinogen Normal Ur Leukocyte Esterase 500 H Urine RBC 0 SEEN Urine WBC 5-10 SEEN Ur Squamous Epith Cells 0-5 SEEN Ur Transition Epith Cell 0-5 SEEN Urine Bacteria 0 SEEN Hyaline Casts 10-25 SEEN Urine Mucus 0 SEEN Discharge Plan Triage Chief Complaint: Syncope ED Provider: Isaiah Osman Dx/Rx/DC Orders Clinical Impression: Dehydration, Hypokalemia, Syncope, Polypharmacy, Coronary artery disease Instructions: Diagnosing Syncope, ED Dehydration (Adult) Prescriptions: New potassium chloride 10 mEq capsule, extended release 10 meq PO DAILY 7 Days Qty: 7 0RF No Action dicyclomine 20 mg tablet 20 mg PO Q8H PRN PRN (Reason: abdominal pain) ondansetron 4 mg tablet,disintegrating 4 mg PO Q8H PRN PRN (Reason: nausea/vomiting) sertraline 100 mg tablet 200 mg PO DAILY Hold Instructions: Do not take sertraline While taking metoclopramide/Reglan aspirin 81 mg Tablet,Delayed Release (Dr/Ec) 81 mg PO BREAKFAST 30 Days Qty: 30 4RF lisinopril 10 mg Tablet 10 mg PO DAILY 30 Days Qty: 30 2RF atorvastatin 80 mg tablet 80 mg PO QHS 30 Days Qty: 30 3RF ondansetron HCl 4 mg tablet 4 mg PO Q6H PRN (Reason: nausea and vomiting) 30 Days Qty: 30 0RF metoclopramide HCl [Reglan] 5 mg tablet 5 mg PO Q6H PRN (Reason: nausea and vomiting) Qty: 14 0RF cefdinir 300 mg capsule 300 mg PO BID 3 Days Qty: 6 0RF metoprolol succinate 25 mg tablet extended release 24 hr 50 mg PO DAILY 30 Days Qty: 60 0RF Rx Instructions: Hold for heart less than 50 or systolic blood pressure less than 100 mmHg. Primary Care Provider: Zack Reeves Referrals: Zack Reeves MD [Primary Care Provider] - Activity Restrictions/Additional Instructions: Please continue your medications as directed by your doctor but do not wear the scopolamine patch any longer as there is high likelihood you are having adverse medication reaction to it causing dizziness and confusion. Keep yourself well-hydrated and take the potassium supplementation for the next week to bring this value into a normal level. Return to the ER should you have any further concerns and follow-up with your family doctor to discuss further outpatient testing if symptoms persist Disposition Disposition: Home, Self Care
[2023-07-12] MEDS: Potassium Chloride Oral Tablet 20 MEQ PO (04:24)
[2023-07-12 04:37] VITALS: BP 112/78; PULSE 72; RESP 19; O2SAT 98
[2023-07-12 04:42] LABS: AST(SGOT) 24 U/L (15-37); Alanine Aminotransfer ALT/SGPT 20 U/L (13-56); Albumin, Serum 3.4 g/dL (3.2-5.0); Alkaline Phosphatase 94 U/L (45-117); Bilirubin, Direct 0.16 mg/dL (0.00-0.30); Globulin 3.3 g/dL (2.2-4.2); Protein, Total 6.7 g/dL (6.4-8.2); Thyroid Stim Hormone (TSH) 8.94 uIU/mL (0.358-3.74)
[2023-07-12] MEDS: 0.9% Normal Saline (1000mL) 1,000 ML 999 ML IV (04:53)
[2023-07-12 05:27] VITALS: BP 112/76; PULSE 81; RESP 19; TEMP 36.6; O2SAT 97
== END 2023-07-12 06:12 | disposition home or self-care (01) ==
PROVIDERS: Emergency Provider Emergency Medicine; PCP Family Medicine; Visit Provider Emergency Medicine
DX: E86.0 Dehydration (principal); I21.4 Non-ST elevation (NSTEMI) myocardial infarction; E87.6 Hypokalemia; R55 Syncope and collapse; R03.1 Nonspecific low blood-pressure reading; I25.10 Atherosclerotic heart disease of native coronary artery without angina pectoris; I10 Essential (primary) hypertension; E78.5 Hyperlipidemia, unspecified; R29.6 Repeated falls; F17.210 Nicotine dependence, cigarettes, uncomplicated; Z79.82 Long term (current) use of aspirin; Z79.899 Other long term (current) drug therapy
CPT/HCPCS: 80048; 80076; 81001; 83735; 84443; 85025; 96360; 96361; 99283; J7030; J7040; A4216

== ENCOUNTER → 2025-01-06 | Outpatient (CLI) | payer MEDICARE, SELFPAY ==
--- NOTE | 2025-01-06 09:45 | STEWCON_ITS ---
Reason For Study Reason For Study: CAD Stress Results Protocol: Stress Echocardiogram Fred Protocol with Definity Maximum Predicted HR: 153 bpm Target HR: 130 bpm % Maximum Predicted HR: 65 % DurationHeart Rate Stage (mm:ss) (bpm) BP Comment Baseline 51 134/72Patient denies chest pain Stage 1 3:00 83 138/86Mild dyspnea. Denies chest pain. Stage 2 3:00 96 140/88Moderate dyspnea. Denies chest pain. Fatigue, Dyspnea. Patient states that she cannot walk any father. She denies chest Stage 3 0:29 100 / pain. Recovery 63 138/84Patient denies dyspnea or chest pain. Stress Duration: 6:29 mm:ss Maximum Stress HR: 100 bpm Baseline Echocardiogram Findings Stress Echo Wall motion Data Resting WM Intermediate WM Stress WM Resting Wall Motion Wall Motion Stress Normal resting wall motion. Estimated All wall segments hyperdynamic at 66% LVEF 50-55%. maximum predicted heart rate. Post stress LVEF 65%. EKG Data Rest ECG sinus rhythm with nonspecific T wave changes across anterior precordial leads. Peak stress ECG with no ischemic changes. Rare PVC. ECHO/Stress Test Echo W/Contrast Interpretation Summary Patient exercised for 6 minutes and 29 seconds, achieving 65% of the maximum pr edicted heart rate. Test stopped because of fatigue and dyspnea. No chest pain reported. Exercise stress ECG negative for ischemia at moderate workload. No segmental wall motion abnormality noted. Negative exercise stress echo for angina or ischemia at 65% maximum predicted h eart rate. Ordering Physician: Tad Hong Referring Physician: Tad Hong Performed By: Lindsay Moore RDCS
== END | disposition home or self-care (01) ==
LOC: CVS 09:44
PROVIDERS: PCP Family Medicine; Referring Provider Internal Medicine Cardiovascular Disease; Visit Provider Internal Medicine Cardiovascular Disease
DX: I25.10 Atherosclerotic heart disease of native coronary artery without angina pectoris (principal)
CPT/HCPCS: 93017; 93350; Q9957; A4216; C8928